=== PATIENT | female | born 1975 | race Caucasian/White ===

== ENCOUNTER 2016-12-10 15:52 | Emergency (ER) | payer SELFPAY ==
--- NOTE | 2016-12-10 16:17 | ER Document Report ---
ED Medical Screen (RME) - General Chief Complaint: Flank Pain Stated Complaint: FLANK PAIN Time Seen by Provider: 12/10/16 16:10 Notes: 41-year-old female who presents today with intermittent right flank pain starting Friday. History of kidney stone 1. Radiation to the right lower quadrant. Some nausea without vomiting or fevers. She does state some dysuria. She was placed on Keflex after they noticed some hematuria at her primary care physician's office. On exam the patient has some mild right flank pain. No abdominal tenderness. TRAVEL OUTSIDE OF THE [place] IN LAST 30 DAYS: No - Related Data Allergies/Adverse Reactions: amoxicillin Allergy (Verified 12/10/16 16:09) Penicillins Allergy (Verified 12/10/16 16:09) Sulfa (Sulfonamide Antibiotics) Allergy (Verified 12/10/16 16:09) Past Medical History Renal/ Medical History: Denies: Hx Peritoneal Dialysis - Immunizations Immunizations up to date: Yes Hx Diphtheria, Pertussis, Tetanus Vaccination: No Physical Exam - Vital signs Vitals: Temp Pulse Resp BP Pulse Ox 98.1 F 67 16 135/82 H 95 12/10/16 16:05 12/10/16 16:05 12/10/16 16:05 12/10/16 16:05 12/10/16 16:05 Course - Vital Signs Vital signs: Temp Pulse Resp BP Pulse Ox 98.1 F 67 16 135/82 H 95 12/10/16 16:05 12/10/16 16:05 12/10/16 16:05 12/10/16 16:05 12/10/16 16:05
[2016-12-10] MEDS ORDERED: KETOROLAC TROMETHAMINE INJ/PF 30 MG/1 ML SDV IV ONE (16:18)
[2016-12-10 16:45] LABS: ABSOLUTE EOSINOPHILS # (AUTO) 0.3 10^3/uL (0.0-0.6); ABSOLUTE LYMPHOCYTES (AUTO) 2.7 10^3/uL (0.5-4.7); ABSOLUTE MONOCYTES (AUTO) 0.6 10^3/uL (0.1-1.4); ABSOLUTE NEUT (AUTO) 4.9 10^3/uL (1.7-8.2); BASOPHILS % (AUTO) 0.6 % (0-2); EOSINOPHILS % (AUTO) 3.2 % (0-6); HEMATOCRIT 41.1 % (36.0-47.0); HEMOGLOBIN 13.7 g/dL (12.0-15.5); LYMPHOCYTES % (AUTO) 31.6 % (13-45); MEAN CORPUSCULAR HEMOGLOBIN 29.9 pg (27.0-33.4); MEAN CORPUSCULAR HGB CONC 33.4 g/dL (32.0-36.0); MEAN CORPUSCULAR VOLUME 90 fl (80-97); MONOCYTES % (AUTO) 7.5 % (3-13); RED BLOOD COUNT 4.58 10^6/uL (3.72-5.28); RED CELL DISTRIBUTION WIDTH 13.1 % (11.5-14.0); SEGMENTED NEUTROPHILS % (AUTO) 57.1 % (42-78); WHITE BLOOD COUNT 8.6 10^3/uL (4.0-10.5)
[2016-12-10 16:53] LABS: ANION GAP 11 (5-19); BLOOD UREA NITROGEN 11 mg/dL (7-20); CALCIUM 9.9 mg/dL (8.4-10.2); CARBON DIOXIDE 25 mmol/L (22-30); CHLORIDE 104 mmol/L (98-107); CREATININE RESULT 0.67 mg/dL (0.52-1.25); GLUCOSE 93 mg/dL (75-110); POTASSIUM 4.5 mmol/L (3.6-5.0); SODIUM 140.4 mmol/L (137-145)
[2016-12-10 16:59] LABS: APPEARANCE,URINE CLOUDY; BILIRUBIN,URINE NEGATIVE (NEGATIVE); GLUCOSE, URINE NEGATIVE (NEGATIVE); KETONES,URINE TRACE mg/dL (NEGATIVE); LEUKOCYTE ESTERASE,URINE NEGATIVE (NEGATIVE); NITRITE,URINE NEGATIVE (NEGATIVE); PROTEIN,URINE 30 mg/dL (NEGATIVE); URINE SPECIFIC GRAVITY 1.028; UROBILINOGEN,URINE NEGATIVE mg/dL (<2.0)
--- NOTE | 2016-12-10 18:13 | ER Document Report ---
ED GI/ - General Chief Complaint: Flank Pain Stated Complaint: FLANK PAIN Time Seen by Provider: 12/10/16 16:10 Information source: Patient Notes: 41-year-old female who presents today with intermittent right flank pain starting Friday. History of kidney stone 1. Radiation to the right lower quadrant. She denies any real aggravating relieving factors. Some nausea without vomiting or fevers. She does state some dysuria. She was placed on Keflex after they noticed some hematuria at her primary care physician's office. TRAVEL OUTSIDE OF THE [place] IN LAST 30 DAYS: No - HPI Patient complains to provider of: Flank pain Onset: Other Timing/Duration: Gradual Quality of pain: Other - See above Severity at maximum: Mild Severity in ED: Mild Pain Level: Denies Location: Other - See above Vaginal bleeding (Compared to normal period): None Sexual history: Inactive Associated symptoms: Other - See above Exacerbated by: Denies Relieved by: Denies Similar symptoms previously: No Recently seen / treated by doctor: Yes - Related Data Allergies/Adverse Reactions: amoxicillin Allergy (Verified 12/10/16 16:09) Penicillins Allergy (Verified 12/10/16 16:09) Sulfa (Sulfonamide Antibiotics) Allergy (Verified 12/10/16 16:09) Past Medical History - General Information source: Patient - Social History Smoking Status: Unknown if Ever Smoked Cigarette use (# per day): No Chew tobacco use (# tins/day): No Smoking Education Provided: No Family History: Reviewed & Not Pertinent Renal/ Medical History: Denies: Hx Peritoneal Dialysis - Immunizations Immunizations up to date: Yes Hx Diphtheria, Pertussis, Tetanus Vaccination: No Review of Systems - Review of Systems Constitutional: denies: Fever Cardiovascular: denies: Chest pain, Palpitations Respiratory: denies: Short of breath Gastrointestinal: denies: Diarrhea, Vomiting Genitourinary: Dysuria Neurological/Psychological: Other - no slurred speech -: Yes All other systems reviewed and negative Physical Exam - Vital signs Vitals: Temp Pulse Resp BP Pulse Ox 98.1 F 67 16 135/82 H 95 12/10/16 16:05 12/10/16 16:05 12/10/16 16:05 12/10/16 16:05 12/10/16 16:05 Notes: Reviewed vital signs and nursing note as charted by RN. CONSTITUTIONAL: Alert and oriented and responds appropriately to questions. Well -appearing; well-nourished HEAD: Normocephalic; atraumatic EYES: PERRL CARD: Regular rate and rhythm; no murmurs, no clicks, no rubs, no gallops; symmetric distal pulses RESP: Normal chest excursion without splinting or tachypnea; breath sounds clear and equal bilaterally; no wheezes, no rhonchi, no rales ABD/GI: Normal bowel sounds; non-distended; soft, mildly tender the right lower quadrant; no rebound or guarding. BACK: The back appears normal and is non-tender to palpation, right CVA tenderness EXT: Normal ROM in all joints; non-tender to palpation; no cyanosis, no effusions, no edema SKIN: Normal color for age and race; warm; dry; good turgor; capillary refill < 2 seconds; no acute lesions noted NEURO: Moves all extremities equally; Motor and sensory function intact PSYCH: The patient's mood and manner are appropriate. Grooming and personal hygiene are appropriate. Course - Re-evaluation Re-evalutation: Given the above history and physical examination I'll elect order a CT scan renal colic protocol to evaluate for possible kidney stone as well as basic labs and kidney function analysis. 12/10/16 18:12 Labs, urinalysis, CT scan as recorded. Given the lack of any kidney stone, this could be an improving urinary tract infection. Given the right lower quadrant pain we have attempted to perform a pelvic exam. Patient has refused. - Vital Signs Vital signs: Temp Pulse Resp BP Pulse Ox 98.1 F 67 16 135/82 H 95 12/10/16 16:05 12/10/16 16:05 12/10/16 16:05 12/10/16 16:05 12/10/16 16:05 - Laboratory Result Diagrams: 12/10/16 16:20 12/10/16 16:20 Laboratory results interpreted by me: 12/10/16 16:20 Urine Protein 30 H Urine Ketones TRACE H Discharge - Discharge Clinical Impression: Right flank pain Condition: Fair Disposition: AGAINST MEDICAL ADVICE Additional Instructions: Come back at any time for further evaluation and treatment. Please follow-up with your primary care physician regarding flank pain and abdominal pain.
[2016-12-10 18:17] VITALS: BP 127/71
== END 2016-12-10 19:04 | disposition left against medical advice (07) ==
LOC: ER 15:52
DX: R10.31 Right lower quadrant pain (principal); R10.9 Unspecified abdominal pain; R11.0 Nausea; R30.0 Dysuria
CPT/HCPCS: 99284; 96374; 36415; 85025; 81025; 80048; 81001; 76380; J1885

== ENCOUNTER → 2017-08-08 | Outpatient (CLI) | payer OTHER ==
[2017-08-08 19:11] LABS: FREE T3 3.48 pg/mL (2.77-5.27); FREE T4 (FREE THYROXINE) 0.89 ng/dL (0.78-2.19)
[2017-08-08 19:25] LABS: THYROID STIMULATING HORMONE 2.41 uIU/mL (0.47-4.68)
== END ==
LOC: OD 17:02
PROVIDERS: ATTEND Family Medicine
DX: M25.50 Pain in unspecified joint (principal)
CPT/HCPCS: 36415; 84439; 84443; 84481; 85652; 86038; 86140; 86225; 86430; 86812

== ENCOUNTER 2018-04-27 05:32 | Day surgery (SDC) | payer OTHER ==
[2018-03-10 11:33] LABS: HEMATOCRIT 41.4 % (36.0-47.0); HEMOGLOBIN 14.2 g/dL (12.0-15.5); MEAN CORPUSCULAR HEMOGLOBIN 29.9 pg (27.0-33.4); MEAN CORPUSCULAR HGB CONC 34.3 g/dL (32.0-36.0); MEAN CORPUSCULAR VOLUME 87 fl (80-97); PLATELET COUNT 392 10^3/uL (150-450); RED BLOOD COUNT 4.75 10^6/uL (3.72-5.28); RED CELL DISTRIBUTION WIDTH 12.9 % (11.5-14.0)
[2018-03-10 11:39] LABS: APPEARANCE,URINE CLOUDY; BILIRUBIN,URINE NEGATIVE (NEGATIVE); GLUCOSE, URINE NEGATIVE (NEGATIVE); KETONES,URINE NEGATIVE (NEGATIVE); LEUKOCYTE ESTERASE,URINE TRACE (NEGATIVE); NITRITE,URINE NEGATIVE (NEGATIVE); PROTEIN,URINE NEGATIVE (NEGATIVE); URINE SPECIFIC GRAVITY 1.028; UROBILINOGEN,URINE NEGATIVE mg/dL (<2.0)
[2018-03-10 11:41] LABS: COLOR,URINE YELLOW
[2018-04-21 11:10] LABS: APPEARANCE,URINE CLOUDY; BILIRUBIN,URINE NEGATIVE (NEGATIVE); GLUCOSE, URINE NEGATIVE (NEGATIVE); KETONES,URINE NEGATIVE (NEGATIVE); LEUKOCYTE ESTERASE,URINE NEGATIVE (NEGATIVE); NITRITE,URINE NEGATIVE (NEGATIVE); PROTEIN,URINE NEGATIVE (NEGATIVE); URINE SPECIFIC GRAVITY 1.019; UROBILINOGEN,URINE NEGATIVE mg/dL (<2.0)
[2018-04-21 11:11] LABS: COLOR,URINE DARK YELLOW
[2018-04-21 11:13] LABS: HEMOGLOBIN 13.6 g/dL (12.0-15.5); MEAN CORPUSCULAR HEMOGLOBIN 29.4 pg (27.0-33.4); MEAN CORPUSCULAR VOLUME 87 fl (80-97); PLATELET COUNT 408 10^3/uL (150-450); RED BLOOD COUNT 4.62 10^6/uL (3.72-5.28); RED CELL DISTRIBUTION WIDTH 13.3 % (11.5-14.0); WHITE BLOOD COUNT 9.6 10^3/uL (4.0-10.5)
[~2018-04-27 05:32] MED LIST: LACTATED RINGERS 1000 ML IV PRN
[2018-04-27] MEDS ORDERED: MIDAZOLAM 2 MG/2 ML INJ ONE (06:19)
[2018-04-27] MEDS ORDERED: FENTANYL CITRATE INJ/PF 100 MCG/2 ML AMPUL ONE (06:19)
[2018-04-27] MEDS ORDERED: LIDOCAINE 2% INJ-PF (20 MG/ML) 10 ML AMPUL ONE (06:19)
[2018-04-27] MEDS ORDERED: ONDANSETRON HCL INJ/PF 4 MG/2 ML SDV ONE (06:20)
[2018-04-27] MEDS ORDERED: PROPOFOL INJ 200 MG/20 ML VIAL IV ONE (06:20)
[2018-04-27] MEDS ORDERED: ACETAMINOPHEN 1,000 MG/100 ML RTUPB IV ONE (06:20)
[2018-04-27] MEDS ORDERED: DEXAMETHASONE SOD PHOSPHATE INJ 4 MG/1 ML VIAL ONE (06:20)
[2018-04-27] MEDS ORDERED: MEPERIDINE HCL/PF INJ 25 MG/1 ML DISP.SYRIN IV PRN (07:15)
[2018-04-27] MEDS ORDERED: MORPHINE SULFATE 10 MG/ML INJ IV PRN (07:15)
[2018-04-27] MEDS ORDERED: PROMETHAZINE HCL INJ 25 MG/1 ML VIAL IV PRN ×2 (07:15)
[2018-04-27] MEDS ORDERED: FENTANYL CITRATE INJ/PF 100 MCG/2 ML AMPUL IV PRN ×3 (07:15)
[2018-04-27] MEDS ORDERED: DIPHENHYDRAMINE HCL 50 MG/ML VIAL IV PRN (07:15)
[2018-04-27] MEDS ORDERED: ONDANSETRON HCL INJ/PF 4 MG/2 ML SDV IV PRN (07:15)
[2018-04-27] MEDS ORDERED: KETOROLAC TROMETHAMINE INJ/PF 30 MG/1 ML SDV ONE (08:50)
[2018-04-27] MEDS: FENTANYL CITRATE INJ/PF 100 MCG/2 ML AMPUL ONE ×2 (08:53→09:10)
[2018-04-27] MEDS ORDERED: PROMETHAZINE HCL INJ 25 MG/1 ML VIAL ONE (09:05)
--- NOTE | 2018-04-27 09:12 | Operative Report ---
Operative Report DATE OF SURGERY: 04/27/18 PREOPERATIVE DIAGNOSIS: Patient desires tubal ligation and endometrial ablation for heavy menses and sterilization POSTOPERATIVE DIAGNOSIS: Same OPERATION: Laparoscopy with bilateral fulgaration of fallopian tubes. Hysteroscopy and D&C with novasure endometrial ablation. SURGEON: RACHID OSHEA ANESTHESIA: GA TISSUE REMOVED OR ALTERED: Uterine contents COMPLICATIONS: none ESTIMATED BLOOD LOSS: none INTRAOPERATIVE FINDINGS: Normal uterus ovaries and fallopian tubes. Uterine sound to 9 cm with uterine cavity of 5 cm and width of 4.5 cm. PROCEDURE: The patient was taken to the OR and placed in a supine position. General anesthesia was induced and she was placed in a dorsal lithotomy position. Her abdomen, perineum and vagina were prepared and draped in a sterile fashion. A sponge stick was placed in the vagina for manipulation of the uterus. An incision was made at the umbilicus. The natural umbilical defect was dialated with a gissell clamp and a blunt port was inserted. Laparoscopy confirmed appropriate placement. Each fallopian tube was identified and cauterized at its mid-isthmic portion with five successive bites moving towards the uterine cornu. At the end of the case the gas was allowed to escape. The fascia was closed with a 2-0 vicryl suture and the skin was closed with 4-0 vicryl suture. Next attention was turned to the vaginal portion of the case. The speculum was placed and the cervix was grasped with a tenaculum. The uterus sounded to 9 cm before and after the case. Hysteroscopy done and showed a normal cavity at 5 cm length. A fractional D&C was done. The Novasure device was inserted, tested and fired. The width was 4.5 cm. The ablation time was 1:30. All instruments were removed and repeat hysteroscopy showed a well ablated cavity. She was taken out of anesthesia and taken to recovery in stable condition.
[2018-04-27] MEDS ORDERED: OXYCODONE-ACETAMINOPHEN 5-325 MG TABLET ONE (09:52)
[2018-04-27 10:53] VITALS: BP 121/74
[2018-04-27] MEDS ORDERED: VECURONIUM BROMIDE INJ 10 MG VIAL IV ONE (14:19)
[2018-04-27] MEDS ORDERED: NEOSTIGMINE METHYLSULFATE 10 MG/10 ML VIAL ONE (14:19)
[2018-04-27] MEDS ORDERED: GLYCOPYRROLATE 1 MG/5 ML SYRINGE ONE (14:19)
[2018-04-27] MEDS ORDERED: SUCCINYLCHOLINE CHLORIDE INJ 200 MG/10 ML VIAL ONE (14:19)
== END 2018-04-27 10:55 | disposition home or self-care (01) ==
LOC: OROUT 05:32
PROVIDERS: ATTEND Obstetrics & Gynecology
DX: Z30.2 Encounter for sterilization (principal); N93.8 Other specified abnormal uterine and vaginal bleeding; N84.0 Polyp of corpus uteri
CPT/HCPCS: 36415 ×2; 85027 ×2; 81005 ×2; 81025; 88305 ×2; 58670; 58563; J2250; J1100; J3010; J3490 ×3; J1885; J2550; J0330; J2405; J2704; J0131; 851

== ENCOUNTER 2018-05-13 18:03 | Emergency (ER) | payer OTHER ==
--- NOTE | 2018-05-13 19:40 | ER Document Report ---
ED General - General Chief Complaint: Post Problem Stated Complaint: POST SURGICAL PAIN Time Seen by Provider: 05/13/18 19:11 Mode of Arrival: Ambulatory Information source: Patient Notes: 43-year-old female with history of recurrent breast infections presents with complaint of right lower quadrant abdominal pain that started earlier today. Patient describes the pain as throbbing, stabbing with radiation to her back. Patient underwent an ablation and tubal ligation on April [address] Cheung. She states over the last few days she has noticed fluid coming from her vagina. She describes it as foul-smelling, yellow in color. Patient reports a fever at home of 101 last night. She has not had any associated nausea, vomiting, chest pain, shortness of breath. As far as the history of recurrent breast infections patient states that she is scheduled to be seen by a plastic surgeon. She states she was told because of the frequent recurrence that she may need a bilateral mastectomy. TRAVEL OUTSIDE OF THE [place] IN LAST 30 DAYS: No - HPI Onset: This morning Onset/Duration: Gradual, Persistent, Worse Quality of pain: Burning, Stabbing, Throbbing Severity: Moderate Associated symptoms: Body/muscle aches, Nonproductive cough, Fever. denies: Hurts to breath, Nausea, Vomiting, Shortness of breath Exacerbated by: Denies Relieved by: Denies Similar symptoms previously: No Recently seen / treated by doctor: Yes - Related Data Allergies/Adverse Reactions: Penicillins Allergy (Intermediate, Verified 05/13/18 18:04) Oral swelling, Hives amoxicillin Allergy (Verified 05/13/18 18:04) Oral swelling, Hives Sulfa (Sulfonamide Antibiotics) Allergy (Verified 05/13/18 18:04) Oral swelling, Hives morphine Adverse Reaction (Mild, Verified 05/13/18 18:04) VOMITING Past Medical History - General Information source: Patient, [facility] Records - Social History Smoking Status: Never Smoker Frequency of alcohol use: None Drug Abuse: None Lives with: Alone Family History: Reviewed & Not Pertinent Patient has suicidal ideation: No Patient has homicidal ideation: No - Past Medical History Cardiac Medical History: Reports: Hx Hypertension - hx of, none at this time , no meds Denies: Hx Coronary Artery Disease, Hx Heart Attack Pulmonary Medical History: Denies: Hx Asthma, Hx Bronchitis, Hx COPD, Hx Pneumonia Neurological Medical History: Denies: Hx Cerebrovascular Accident, Hx Seizures Renal/ Medical History: Denies: Hx Peritoneal Dialysis Musculoskeletal Medical History: Reports Hx Arthritis - Back Past Surgical History: Reports: Hx Gynecologic Surgery - tubal ligation and ablation - Immunizations Immunizations up to date: Yes Hx Diphtheria, Pertussis, Tetanus Vaccination: No Review of Systems - Review of Systems Constitutional: Fever, Weakness EENT: denies: Blurred vision, Difficulty swallowing Cardiovascular: denies: Chest pain, Heart racing, Dizziness, Lightheaded Respiratory: Cough. denies: Short of breath Gastrointestinal: Abdominal pain Genitourinary: Dysuria, Flank pain Female Genitourinary: Vaginal discharge Musculoskeletal: Back pain Skin: denies: Rash Hematologic/Lymphatic: No symptoms reported Neurological/Psychological: denies: Headaches -: Yes All other systems reviewed and negative Physical Exam - Vital signs Vitals: Temp Pulse Resp BP Pulse Ox 98.3 F 86 18 149/87 H 97 05/13/18 18:18 10 18:18 05/13/18 18:18 05/13/18 18:18 05/13/18 18:18 Interpretation: Hypertensive - Notes Notes: PHYSICAL EXAMINATION: GENERAL: Well-appearing, well-nourished and in no acute distress. HEAD: Atraumatic, normocephalic. EYES: Pupils equal round and reactive to light, extraocular movements intact, conjunctiva are normal. ENT: Nares patent, oropharynx clear without exudates. Moist mucous membranes. NECK: Normal range of motion, supple without lymphadenopathy LUNGS: Breath sounds clear to auscultation bilaterally and equal. No wheezes rales or rhonchi. HEART: Regular rate and rhythm without murmurs ABDOMEN: Right lower quadrant abdominal pain with palpation, no guarding, no rebound. No masses appreciated. Right CVA tenderness Female : Pelvic exam; External genitalia unremarkable. Speculum exam with discharge. Vaginal wall unremarkable. Os closed. No cervical motion tenderness. right adnexal tenderness. Swabs obtained for gonorrhea, chlamydia and wet prep. Musculoskeletal: Normal range of motion, no pitting or edema. No cyanosis. NEUROLOGICAL: Cranial nerves grossly intact. Normal speech, normal gait. Normal sensory, motor exams PSYCH: Normal mood, normal affect. SKIN: Warm, Dry, normal turgor, no rashes or lesions noted. No induration or fluctuance of the breasts Course - Re-evaluation Re-evalutation: Laboratory 05/13/18 05/13/18 05/13/18 19:13 19:13 19:13 WBC 14.7 H RBC 4.73 Hgb 13.9 Hct 40.7 MCV 86 MCH 29.4 MCHC 34.3 RDW 13.4 Plt Count 455 H Seg Neutrophils % 68.9 Lymphocytes % 19.6 Monocytes % 7.4 Eosinophils % 3.4 Basophils % 0.7 Absolute Neutrophils 10.1 H Absolute Lymphocytes 2.9 Absolute Monocytes 1.1 Absolute Eosinophils 0.5 Absolute Basophils 0.1 Sodium 138.8 Potassium 4.5 Chloride 104 Carbon Dioxide 25 Anion Gap 10 BUN 11 Creatinine 0.71 Est GFR ( Amer) > 60 Est GFR (Non-Af Amer) > 60 Glucose 88 Calcium 9.7 Total Bilirubin 0.3 Direct Bilirubin 0.2 Neonat Total Bilirubin Not Reportable Neonat Direct Bilirubin Not Reportable Neonat Indirect Bili Not Reportable AST 24 ALT 25 Alkaline Phosphatase 47 Total Protein 7.6 Albumin 4.3 Lipase 182.4 Urine Color YELLOW Urine Appearance TURBID Urine pH 5.0 Ur Specific [place] 1.038 Urine Protein >=500 H Urine Glucose (UA) NEGATIVE Urine Ketones NEGATIVE Urine Blood LARGE H Urine Nitrite NEGATIVE Urine Bilirubin NEGATIVE Urine Urobilinogen NEGATIVE Ur Leukocyte Esterase LARGE H Urine WBC (Auto) >182 Urine RBC (Auto) 57 Urine Bacteria (Auto) 3+ Urine WBC Clumps MANY Squamous Epi Cells Auto 7 Urine Mucus (Auto) FEW Urine Ascorbic Acid NEGATIVE Urine HCG, Qual Epi Cells (Wet Prep) Bacteria (Wet Prep) Trichomonas (Wet Prep) Vaginal WBC Vaginal RBC Vaginal Yeast Chlamydia DNA (PCR) N.gonorrhoeae DNA (PCR) 05/13/18 05/13/18 05/13/18 19:13 20:52 20:52 WBC RBC Hgb Hct MCV MCH MCHC RDW Plt Count Seg Neutrophils % Lymphocytes % Monocytes % Eosinophils % Basophils % Absolute Neutrophils Absolute Lymphocytes Absolute Monocytes Absolute Eosinophils Absolute Basophils Sodium Potassium Chloride Carbon Dioxide Anion Gap BUN Creatinine Est GFR ( Amer) Est GFR (Non-Af Amer) Glucose Calcium Total Bilirubin Direct Bilirubin Neonat Total Bilirubin Neonat Direct Bilirubin Neonat Indirect Bili AST ALT Alkaline Phosphatase Total Protein Albumin Lipase Urine Color Urine Appearance Urine pH Ur Specific [place] Urine Protein Urine Glucose (UA) Urine Ketones Urine Blood Urine Nitrite Urine Bilirubin Urine Urobilinogen Ur Leukocyte Esterase Urine WBC (Auto) Urine RBC (Auto) Urine Bacteria (Auto) Urine WBC Clumps Squamous Epi Cells Auto Urine Mucus (Auto) Urine Ascorbic Acid Urine HCG, Qual NEGATIVE Epi Cells (Wet Prep) 3+ EPITHELIALS SEEN Bacteria (Wet Prep) 4+ BACTERIA SEEN Trichomonas (Wet Prep) NO TRICHOMONAS SEEN Vaginal WBC 3+ WBCS SEEN Vaginal RBC RARE RBCS SEEN Vaginal Yeast YEAST SEEN Chlamydia DNA (PCR) NOT DETECTED N.gonorrhoeae DNA (PCR) NOT DETECTED Abdomen/Pelvis CT 05/13/18 19:32 IMPRESSION: Fluid and gas within the endometrium. Possibility of endometritis is not excluded No free fluid in the pelvis Fibroid in the uterine fundus 43-year-old female presents with abdominal pain, vaginal discharge 2 weeks after an ablation and tubal ligation. Vital signs reviewed and within normal limits. Previous medical records and nursing notes also reviewed. Exam is significant for suprapubic and right lower quadrant abdominal pain. CBC is significant for a leukocytosis of 14. CMP is without electrolyte abnormalities. Urinalysis consistent with urinary tract infection. Wet prep positive. Gonorrhea and chlamydia negative. Prior to CAT scan results patient did receive 1 g of ceftriaxone for her urinary tract infection. CT of the abdomen and pelvis were obtained and significant for fluid and gas within the endometrium. 05/13/18 22:24 I did speak to Dr. Irwin Cheung who did perform the surgery. I reviewed the patient's lab findings and CT findings with him. He is recommending Cipro and Flagyl for home-going medications. Upon review of the literature I will use doxycycline and Flagyl. Patient also received Diflucan for found yeast on vaginal swabs. Patient has an appointment tomorrow with her [facility] CONTROL COORDINATOR. I did discuss admission with the patient who is currently declining. She states that she has a disabled son at home and would like to try outpatient antibiotics. Patient was evaluated and treated as appropriate for the patient's presenting symptoms and complaint, with consideration of any critical or life threatening conditions that may be associated with their obtained history and exam as noted above. All results were discussed with patient and her surgeon. Patient provided the opportunity to ask questions, and express concerns. Patient was educated on treatments based on their presumed diagnosis as noted above. At this time we will discharge the patient with return precautions and follow-up recommendations. Verbal discharge instructions given a the bedside. Medication warnings reviewed. Patient is in agreement with this plan and has verbalized understanding of return precautions. After careful consideration I feel that that patient can be safely discharged from the emergency department, they were advised to followup with a primary care physician in 2-3 days. Dictation on this chart was performed using voice recognition software and may result in unintended grammatical, spelling, syntax or errors. 05/14/18 02:23 05/14/18 02:24 05/14/18 02:26 - Vital Signs Vital signs: Temp Pulse Resp BP Pulse Ox 98.0 F 81 18 140/82 H 100 05/13/18 22:43 05/13/18 22:43 05/13/18 22:43 05/13/18 22:43 05/13/18 22:43 - Laboratory Result Diagrams: 05/13/18 19:13 05/13/18 19:13 Laboratory results interpreted by me: 05/13/18 05/13/18 19:13 19:13 WBC 14.7 H Plt Count 455 H Absolute Neutrophils 10.1 H Urine Protein >=500 H Urine Blood LARGE H Ur Leukocyte Esterase LARGE H - Diagnostic Test Radiology reviewed: Image reviewed, Reports reviewed Discharge - Discharge Clinical Impression: Endometritis, Elevated blood pressure reading, Bacterial vaginosis, Vaginal candidiasis UTI (urinary tract infection) Qualifiers: Urinary tract infection type: site unspecified Hematuria presence: with hematuria Qualified Code(s): N39.0 - Urinary tract infection, site not specified Abdominal pain Qualifiers: Abdominal location: right lower quadrant Qualified Code(s): R10.31 - Right lower quadrant pain Condition: Good Disposition: HOME, SELF-CARE Instructions: Abdominal Pain ([facility]), Antinausea Medication ([facility]), Endometritis ( [facility]), Urinary Tract Infection ([facility]), Vaginosis, Bacterial ([facility]) Additional Instructions: You are being treated for bacterial vaginosis, an overgrowth of normal bacteria in the vagina. You are being sent home on an antibiotic called metronidazole. Take exactly as directed. Never drink alcohol while taking this antibiotic. Please return if you develop abdominal pain, fever greater than 101F, some vomiting, or any other symptoms that are concerning to you. Your urine shows findings consistent with a urinary tract infection. Please take all the antibiotics as directed even if your symptoms have improved. Please follow-up with your primary care physician as needed. Return to emergency room if you develop fever >101F, persistent vomiting, become lethargic , have severe pain in your sides, or any other symptoms that are concerning to you. Please keep your already scheduled appointment with EROS[facility] CONTROL COORDINATOR tomorrow. Follow up with your [id number] hours for further care or return to the ED IMMEDIATELY if symptoms worsen or you have any concerns. If you cannot afford to follow up with your primary care physician a list of low cost clinics have been provided at the end of your discharge papers as well. Most prescribed medications have multiple side effects. The safest thing to do is when filling your prescription speak to your pharmacist regarding possible interactions with your normal home medications and over the counter medications such as Ibuprofen, Tylenol, Benadryl. If you experience any symptoms that cause you discomfort or concern you should discontinue the medication immediately and return to the emergency room or call your primary care physician. Prescriptions: Doxycycline Hyclate 100 mg PO BID #14 capsule Hydrocodone/Acetaminophen [[place] 5-325 mg Tabs (6 Tab/ER Disp)] 6 tab PO Q6H #1 dspk Metronidazole [Flagyl 500 mg Tablet] 500 mg PO BID #14 tablet Ondansetron [Zofran Odt 4 mg Tablet] 1 - 2 tab PO Q4H PRN #15 tab.rapdis PRN Reason: For Nausea/Vomiting Forms: Elevated Blood Pressure Referrals: ARIS AGUILAR PA-C [Primary Care Provider] - Follow up as needed
[2018-05-13 19:47] LABS: ABSOLUTE BASOPHILS # (AUTO) 0.1 10^3/uL (0.0-0.2); ABSOLUTE EOSINOPHILS # (AUTO) 0.5 10^3/uL (0.0-0.6); ABSOLUTE LYMPHOCYTES (AUTO) 2.9 10^3/uL (0.5-4.7); ABSOLUTE MONOCYTES (AUTO) 1.1 10^3/uL (0.1-1.4); ABSOLUTE NEUT (AUTO) 10.1 10^3/uL (1.7-8.2); BASOPHILS % (AUTO) 0.7 % (0-2); EOSINOPHILS % (AUTO) 3.4 % (0-6); HEMATOCRIT 40.7 % (36.0-47.0); HEMOGLOBIN 13.9 g/dL (12.0-15.5); LYMPHOCYTES % (AUTO) 19.6 % (13-45); MEAN CORPUSCULAR HEMOGLOBIN 29.4 pg (27.0-33.4); MEAN CORPUSCULAR HGB CONC 34.3 g/dL (32.0-36.0); MEAN CORPUSCULAR VOLUME 86 fl (80-97); MONOCYTES % (AUTO) 7.4 % (3-13); PLATELET COUNT 455 10^3/uL (150-450); RED BLOOD COUNT 4.73 10^6/uL (3.72-5.28); RED CELL DISTRIBUTION WIDTH 13.4 % (11.5-14.0); SEGMENTED NEUTROPHILS % (AUTO) 68.9 % (42-78); TOTAL CELLS COUNTED % (AUTO) 100 %; WHITE BLOOD COUNT 14.7 10^3/uL (4.0-10.5)
[2018-05-13 19:52] LABS: APPEARANCE,URINE TURBID; BILIRUBIN,URINE NEGATIVE (NEGATIVE); COLOR,URINE YELLOW; GLUCOSE, URINE NEGATIVE (NEGATIVE); KETONES,URINE NEGATIVE (NEGATIVE); LEUKOCYTE ESTERASE,URINE LARGE (NEGATIVE); NITRITE,URINE NEGATIVE (NEGATIVE); PROTEIN,URINE >=500 mg/dL (NEGATIVE); URINE SPECIFIC GRAVITY 1.038; UROBILINOGEN,URINE NEGATIVE mg/dL (<2.0)
[2018-05-13 19:55] LABS: ALANINE AMINOTRANSFERASE 25 U/L (9-52); ALBUMIN 4.3 g/dL (3.5-5.0); ALKALINE PHOSPHATASE 47 U/L (38-126); ANION GAP 10 (5-19); ASPARTATE AMINO TRANSFERASE 24 U/L (14-36); BILIRUBIN,DIRECT 0.2 mg/dL (0.0-0.4); BILIRUBIN,TOTAL 0.3 mg/dL (0.2-1.3); BLOOD UREA NITROGEN 11 mg/dL (7-20); CALCIUM 9.7 mg/dL (8.4-10.2); CARBON DIOXIDE 25 mmol/L (22-30); CHLORIDE 104 mmol/L (98-107); GLUCOSE 88 mg/dL (75-110); LIPASE 182.4 U/L (23-300); POTASSIUM 4.5 mmol/L (3.6-5.0); SODIUM 138.8 mmol/L (137-145); TOTAL PROTEIN 7.6 g/dL (6.3-8.2)
[2018-05-13] MEDS ORDERED: CEFTRIAXONE 1 GM/D5W RTU 1 GM/50 ML RTUPB IV ONE (20:43)
[2018-05-13] MEDS ORDERED: KETOROLAC TROMETHAMINE INJ/PF 30 MG/1 ML SDV IV ONE (20:53)
[2018-05-13] MEDS: NORMAL SALINE 1000 ML 1,000 ML IV ONE ×2 (21:07→22:31)
[2018-05-13 21:25] LABS: BACTERIA (WET MOUNT) 4+ BACTERIA SEEN; RBCS (WET MOUNT) RARE RBCS SEEN; T.VAGINALIS (WET MOUNT) NO TRICHOMONAS SEEN; WBCS (WET MOUNT) 3+ WBCS SEEN; YEAST (WET MOUNT) YEAST SEEN
[2018-05-13 21:26] LABS: EPITHELIALS (WET MOUNT) 3+ EPITHELIALS SEEN
--- NOTE | 2018-05-13 22:07 | RADIOLOGY REPORT (SQ) ---
EXAM DESCRIPTION: CT ABDOMEN PELVIS WITH IV CONTRAST COMPLETED DATE/TME: 05/13/2018 19:32 CLINICAL HISTORY: 43 years Female rlq pain COMPARISON: None. TECHNIQUE: Contiguous axial images obtained through the abdomen and pelvis following IV contrast. Reformatted images obtained. This exam was performed according to our department optimization program which includes automated exposure control, adjustment of the mA and/or kv according to patient size and/or use of iterative reconstruction technique. FINDINGS: The liver appears unremarkable. The spleen and pancreas appear unremarkable. No adrenal masses. The kidneys appear unremarkable. No hydronephrosis. The gallbladder is absent. No aneurysmal dilatation of the aorta. No bowel obstruction. The appendix is unremarkable. Fibroid uterus with a 3.6 cm fibroid in the right aspect of the fundus. There is fluid and gas in the endometrium. Recommend clinical correlation. Possibility of infection such as endometritis is not excluded. IMPRESSION: Fluid and gas within the endometrium. Possibility of endometritis is not excluded No free fluid in the pelvis Fibroid in the uterine fundus
[2018-05-13] MEDS ORDERED: CLINDAMYCIN HCL 150 MG CAPSULE PO ONE (22:18)
[2018-05-13] MEDS ORDERED: FLUCONAZOLE 100 MG TABLET PO ONE (22:20)
[2018-05-13] MEDS ORDERED: DOXYCYCLINE HYCLATE 100 MG TABLET PO ONE (22:20)
[2018-05-13 22:45] VITALS: BP 140/82
[2018-05-13 22:55] LABS: CHLAM PCR NOT DETECTED (NOT DETECT); GON PCR NOT DETECTED (NOT DETECT)
== END 2018-05-13 22:49 | disposition home or self-care (01) ==
LOC: ER 18:03
DX: O86.12 Endometritis following delivery (principal); B96.89 Other specified bacterial agents as the cause of diseases classified elsewhere; B37.3 Candidiasis of vulva and vagina; N39.0 Urinary tract infection, site not specified; R10.31 Right lower quadrant pain; I10 Essential (primary) hypertension; G89.18 Other acute postprocedural pain; M54.9 Dorsalgia, unspecified; R50.9 Fever, unspecified; M79.10 Myalgia, unspecified site; R05 Cough; R30.0 Dysuria
CPT/HCPCS: 99284; 96375; 96365; 36415; 87210; 83690; 85025; 81025; 80053; 81001; 87491; 87591; 74177; J1885; J0696; J7030

== ENCOUNTER 2019-08-29 10:55 | Emergency (ER) | payer OTHER ==
[2019-08-29] MEDS ORDERED: ACETAMINOPHEN 325 MG TABLET PO ONE (13:04)
[2019-08-29] MEDS ORDERED: TETRACAINE HCL 0.5% OPH SOLN 4 ML OD ONE (13:23)
--- NOTE | 2019-08-29 13:42 | ER Document Report ---
ED General - General Chief Complaint: Eye Pain Stated Complaint: VISION DIFFICULTY Time Seen by Provider: 08/29/19 13:20 Primary Care Provider: DANICA MALDONADO DO [ACTIVE STAFF] - Follow up as needed ARIS AGUILAR PA-C [Primary Care Provider] - Follow up as needed Mode of Arrival: Ambulatory Information source: Patient TRAVEL OUTSIDE OF THE [place] IN LAST 30 DAYS: No - HPI Onset: Other - 5 days ago Onset/Duration: Gradual Quality of pain: Burning Severity: Moderate Pain Level: 3 Associated symptoms: Nonproductive cough, Other - swelling of left upper eye lid interanlly externally Exacerbated by: Denies Relieved by: Denies Similar symptoms previously: No Recently seen / treated by doctor: No Notes: 44 year old female with no significant PMH here for 5 days of a cough, congestion, and left eye lid pain/swelling along with left eye soft tissue swelling. The patient saw her PCP last week and was prescribed Levaquin and Polymixin Eye Drops due to concern of pneumonia (she had a positive xray) and an eye infection. The patient says the pain and swelling in her left eye seem to be getting worse over the last few days. The patient thinks there is a sty in her left eye that is about to open up. The patient says her cough has improved some since being on Levaquin. The patient does not wear contacts. - Related Data Allergies/Adverse Reactions: Penicillins Allergy (Intermediate, Verified 08/29/19 11:41) Oral swelling, Hives amoxicillin Allergy (Verified 08/29/19 11:41) Oral swelling, Hives Sulfa (Sulfonamide Antibiotics) Allergy (Verified 08/29/19 11:41) Oral swelling, Hives morphine Adverse Reaction (Mild, Verified 08/29/19 11:41) VOMITING Past Medical History - General Information source: Patient - Social History Smoking Status: Current Every Day Smoker Chew tobacco use (# tins/day): No Frequency of alcohol use: None Drug Abuse: None Lives with: Alone Family History: Reviewed & Not Pertinent Patient has suicidal ideation: No Patient has homicidal ideation: No - Past Medical History Cardiac Medical History: Reports: Hx Hypertension - hx of, none at this time , no meds Denies: Hx Coronary Artery Disease, Hx Heart Attack Pulmonary Medical History: Denies: Hx Asthma, Hx Bronchitis, Hx COPD, Hx Pneumonia Neurological Medical History: Denies: Hx Cerebrovascular Accident, Hx Seizures Renal/ Medical History: Denies: Hx Peritoneal Dialysis Musculoskeletal Medical History: Reports Hx Arthritis - Back Past Surgical History: Reports: Hx Gynecologic Surgery - tubal ligation and ablation - Immunizations Immunizations up to date: Yes Hx Diphtheria, Pertussis, Tetanus Vaccination: No Review of Systems - Review of Systems Constitutional: No symptoms reported EENT: Eye pain, Tearing, Other - mild left sided facial swelling with redness Cardiovascular: No symptoms reported Respiratory: Cough Gastrointestinal: No symptoms reported Genitourinary: No symptoms reported Female Genitourinary: No symptoms reported Musculoskeletal: No symptoms reported Skin: Other - mild erythema and swelling of soft tissue around left eye Hematologic/Lymphatic: No symptoms reported Neurological/Psychological: No symptoms reported -: Yes All other systems reviewed and negative Physical Exam - Vital signs Vitals: Temp Pulse Resp BP Pulse Ox 98.1 F 84 18 155/87 H 97 08/29/19 11:12 08/29/19 11:12 08/29/19 11:12 08/29/19 11:12 08/29/19 11:12 - Notes Notes: GENERAL: Well-appearing, well-nourished and in no acute distress. HEAD: Atraumatic, normocephalic. EYES: Pupils equal round and reactive to light, extraocular movements intact, sclera anicteric. Sty in left upper eye lid which can be seen externally and internally. Mild erythema of left conjunctiva. Mild swelling, erythema and warmth of soft tissue around left eye which seems to start around the sty. ENT: Nares patent, oropharynx clear without exudates. Moist mucous membranes. NECK: Normal range of motion, supple without lymphadenopathy or JVD. LUNGS: Breath sounds clear to auscultation bilaterally and equal. No wheezes rales or rhonchi. HEART: Regular rate and rhythm without murmurs, rubs or gallops. ABDOMEN: Soft, nontender, normoactive bowel sounds. No guarding, no rebound. No masses appreciated. EXTREMITIES: Normal range of motion, no pitting or edema. No clubbing or cyanosis. NEUROLOGICAL: Cranial nerves II through XII grossly intact. Normal speech, normal gait. PSYCH: Normal mood, normal affect. SKIN: Warm, Dry, normal turgor, no rashes or lesions noted. - HEENT Visual acuity- Right eye: 20/70 Visual acuity- Left eye: 20/70 Visual acuity- Both eyes: 20/70 Corrective lenses worn: No Course - Re-evaluation Re-evalutation: 08/29/19 15:21 The patient has a sty in her left upper eye lid which is inflamed and possibly causing a surrounding cellulites. Will treat with Clindamycin and refer to Ophthalmology. Patient had some Fluorescein uptake at 12 oclock on exam of left eye so she was told to continue the antibiotic eye drops. Patient told to continue Levaquin if she is still have pneumonia symptoms. - Vital Signs Vital signs: Temp Pulse Resp BP Pulse Ox 98.0 F 80 18 160/95 H 96 08/29/19 14:16 08/29/19 14:16 08/29/19 14:16 08/29/19 14:16 08/29/19 14:16 Discharge - Discharge Clinical Impression: Sty, internal Qualifiers: Laterality: left Eyelid: upper Qualified Code(s): H00.024 - Hordeolum internum left upper eyelid Cellulitis Qualifiers: Site of cellulitis: face Qualified Code(s): L03.211 - Cellulitis of face Condition: Stable Disposition: HOME, SELF-CARE Instructions: Cellulitis ([facility]), Sty ([facility]) Additional Instructions: Start taking Clindamycin (oral antiotic) as prescribed. Continue your previously prescribed antibiotic eye drops. Use Tylenol and Motrin for pain and Tramadol for pain not well controlled. Follow up with an Eye Doctor as soon as possible. Prescriptions: Tramadol HCl [Ultram 50 mg Tablet] 50 mg PO Q6HP PRN #10 tab PRN Reason: Tramadol HCl [Ultram 50 mg Tablet] 50 mg PO Q8HP PRN #10 tab PRN Reason: Ondansetron [Zofran Odt 4 mg Tablet] 1 tab PO Q8HP PRN #15 tab.rapdis PRN Reason: For Nausea/Vomiting Clindamycin HCl [Cleocin 150 mg Capsule] 450 mg PO TID 7 Days #63 tab-cap Referrals: ARIS AGUILAR PA-C [Primary Care Provider] - Follow up as needed DANICA MALDONADO DO [ACTIVE STAFF] - Follow up as needed
[2019-08-29 14:17] VITALS: BP 160/95
== END 2019-08-29 14:16 | disposition home or self-care (01) ==
LOC: ER 10:55
DX: H00.024 Hordeolum internum left upper eyelid (principal); L03.211 Cellulitis of face; H57.12 Ocular pain, left eye; F17.200 Nicotine dependence, unspecified, uncomplicated; Z98.51 Tubal ligation status; Z88.0 Allergy status to penicillin; Z88.2 Allergy status to sulfonamides; Z88.6 Allergy status to analgesic agent
CPT/HCPCS: 99283; J3490

== ENCOUNTER 2019-11-27 08:31 | Emergency (ER) | payer SELFPAY ==
[2019-11-27] MEDS ORDERED: NORMAL SALINE 1000 ML 1,000 ML IV ONE (09:04)
--- NOTE | 2019-11-27 09:05 | ER Document Report ---
ED GI/ - General Chief Complaint: Abdominal Pain Stated Complaint: ABDOMINAL PAIN Time Seen by Provider: 11/27/19 08:36 Primary Care Provider: [facility] [Provider Group] - Follow up as needed ARIS AGUILAR PA-C [Primary Care Provider] - Follow up as needed Mode of Arrival: Ambulatory Information source: Patient Notes: Patient presents complaining of abdominal pain for the past 2 weeks that worsened today. Patient states that she felt a bulge to the abdomen and is concerned she may have a hernia. Patient states she does feel little bloated today as well. Patient states she has had some diarrhea after eating. Patient denies any nausea or vomiting. Patient denies any urinary symptoms. Patient states that the pain symptoms did worsen after she was doing Pilates. TRAVEL OUTSIDE OF THE [place] IN LAST 30 DAYS: No - HPI Patient complains to provider of: Abdominal pain, Diarrhea. No: Vomiting Onset: Other - 2 weeks Timing/Duration: Worse Quality of pain: Achy Pain Level: 3 Location: Other - Periumbilical Associated symptoms: Diarrhea. denies: Chest pain, Nausea, Urinary hesitancy, Urinary frequency, Urinary retention, Urinary urgency, Vaginal discharge, Vomiting Exacerbated by: Denies Relieved by: Denies Similar symptoms previously: No Recently seen / treated by doctor: No - Related Data Allergies/Adverse Reactions: Penicillins Allergy (Intermediate, Verified 08/29/19 11:41) Oral swelling, Hives shellfish derived Allergy (Intermediate, Verified 11/27/19 10:34) Hives amoxicillin Allergy (Verified 08/29/19 11:41) Oral swelling, Hives Sulfa (Sulfonamide Antibiotics) Allergy (Verified 08/29/19 11:41) Oral swelling, Hives Iodinated Contrast Media Adverse Reaction (Intermediate, Unverified 11/27/19 10:58) Hives morphine Adverse Reaction (Mild, Verified 08/29/19 11:41) VOMITING Past Medical History - General Information source: Patient - Social History Smoking Status: Current Every Day Smoker Frequency of alcohol use: None Drug Abuse: None Occupation: Teacher Lives with: Family Family History: Reviewed & Not Pertinent - Past Medical History Cardiac Medical History: Reports: Hx Hypertension - hx of, none at this time , no meds Neurological Medical History: Denies: Hx Cerebrovascular Accident, Hx Seizures Renal/ Medical History: Denies: Hx Peritoneal Dialysis Musculoskeletal Medical History: Reports Hx Arthritis - Back Past Surgical History: Reports: Hx Breast Surgery, Hx Cholecystectomy, Hx Gynecologic Surgery - tubal ligation and ablation - Immunizations Immunizations up to date: Yes Hx Diphtheria, Pertussis, Tetanus Vaccination: No Review of Systems - Review of Systems Constitutional: No symptoms reported. denies: Fever, Recent illness EENT: No symptoms reported Cardiovascular: No symptoms reported. denies: Chest pain Respiratory: No symptoms reported. denies: Cough, Short of breath Gastrointestinal: Abdominal pain, Diarrhea. denies: Nausea, Vomiting Genitourinary: No symptoms reported Female Genitourinary: No symptoms reported Musculoskeletal: No symptoms reported. denies: Back pain Skin: No symptoms reported Hematologic/Lymphatic: No symptoms reported Neurological/Psychological: No symptoms reported Physical Exam - Vital signs Vitals: Temp Pulse Resp BP Pulse Ox 98.7 F 92 17 151/81 H 97 11/27/19 08:34 11/27/19 08:34 11/27/19 08:34 11/27/19 08:34 11/27/19 08:34 - General General appearance: Appears well, Alert In distress: None - HEENT Head: Normocephalic, Atraumatic Eyes: Normal Conjunctiva: Normal Nasal: Normal Mouth/Lips: Normal Mucous membranes: Normal Neck: Normal, Supple. No: Lymphadenopathy - Respiratory Respiratory status: No respiratory distress Chest status: Nontender Breath sounds: Normal. No: Rales, Rhonchi, Stridor, Wheezing Chest palpation: Normal - Cardiovascular Rhythm: Regular Heart sounds: S1 appreciated, S2 appreciated Murmur: No - Abdominal Inspection: Morbidly Obese Distension: No distension Bowel sounds: Normal Tenderness: Tender - Epigastric, right upper quadrant, right lower quadrant, Guarding Organomegaly: No organomegaly - Back Back: CVA tenderness - Right - Extremities General upper extremity: Normal inspection, Normal strength General lower extremity: Normal inspection, Normal strength - Neurological Neuro grossly intact: Yes Cognition: Normal [place] Coma Scale Eye Opening: Spontaneous [place] Coma Scale Verbal: Oriented [place] Coma Scale Motor: Obeys Commands Ross Coma Scale Total: 15 - Psychological Associated symptoms: Normal affect, Normal mood - Skin Skin Temperature: Warm Skin Moisture: Dry Skin Color: Normal Course - Re-evaluation Re-evalutation: 11/27/19 11:46 CT scan reviewed, patient with incidental umbilical hernia, no inflammatory bowel changes, no appendicitis. Patient feels as though she probably worked out too hard when she did Pilates recently which aggravated this. Patient encouraged to follow-up with the surgeon on outpatient basis for further management. Patient presents with abdominal pain without signs of peritonitis or other life-threatening or serious etiology. Patient appears stable for discharge and has been instructed to return immediately if the symptoms worsen in any way. - Vital Signs Vital signs: Temp Pulse Resp BP Pulse Ox 98.4 F 74 20 133/93 H 99 11/27/19 12:01 11/27/19 12:01 11/27/19 12:01 11/27/19 12:01 11/27/19 12:01 - Laboratory Result Diagrams: 11/27/19 09:30 11/27/19 09:30 Laboratory results interpreted by me: 11/27/19 11/27/19 09:30 09:30 Sodium 135.6 L Alkaline Phosphatase 33 L Urine Ascorbic Acid 40 H Labs- Entire Visit 11/27/19 11/27/19 11/27/19 09:30 09:30 09:30 WBC 7.9 RBC 4.60 Hgb 14.1 Hct 40.8 MCV 89 MCH 30.6 MCHC 34.5 RDW 12.9 Plt Count 359 Lymph % (Auto) 29.7 Ector % (Auto) 6.3 Eos % (Auto) 3.4 Baso % (Auto) 0.7 Absolute Neuts (auto) 4.8 Absolute Lymphs (auto) 2.4 Absolute Monos (auto) 0.5 Absolute Eos (auto) 0.3 Absolute Basos (auto) 0.1 Seg Neutrophils % 59.9 Sodium 135.6 L Potassium 4.2 Chloride 101 Carbon Dioxide 28 Anion Gap 7 BUN 7 Creatinine 0.55 Est GFR ( Amer) > 60 Est GFR (MDRD) Non-Af > 60 Glucose 95 Calcium 9.5 Total Bilirubin 0.4 Direct Bilirubin 0.0 Neonat Total Bilirubin Not Reportable Neonat Direct Bilirubin Not Reportable Neonat Indirect Bili Not Reportable AST 26 ALT 21 Alkaline Phosphatase 33 L Total Protein 7.2 Albumin 4.2 Lipase 114.9 Serum HCG, Qual NEGATIVE Urine Color Urine Appearance Urine pH Ur Specific [place] Urine Protein Urine Glucose (UA) Urine Ketones Urine Blood Urine Nitrite Urine Bilirubin Urine Urobilinogen Ur Leukocyte Esterase Urine WBC (Auto) Urine RBC (Auto) Urine Bacteria (Auto) Squamous Epi Cells Auto Urine Mucus (Auto) Urine Ascorbic Acid 11/27/19 09:30 WBC RBC Hgb Hct MCV MCH MCHC RDW Plt Count Lymph % (Auto) Ector % (Auto) Eos % (Auto) Baso % (Auto) Absolute Neuts (auto) Absolute Lymphs (auto) Absolute Monos (auto) Absolute Eos (auto) Absolute Basos (auto) Seg Neutrophils % Sodium Potassium Chloride Carbon Dioxide Anion Gap BUN Creatinine Est GFR ( Amer) Est GFR (MDRD) Non-Af Glucose Calcium Total Bilirubin Direct Bilirubin Neonat Total Bilirubin Neonat Direct Bilirubin Neonat Indirect Bili AST ALT Alkaline Phosphatase Total Protein Albumin Lipase Serum HCG, Qual Urine Color YELLOW Urine Appearance SLIGHTLY-CLOUDY Urine pH 5.0 Ur Specific [place] 1.023 Urine Protein NEGATIVE Urine Glucose (UA) NEGATIVE Urine Ketones NEGATIVE Urine Blood NEGATIVE Urine Nitrite NEGATIVE Urine Bilirubin NEGATIVE Urine Urobilinogen NEGATIVE Ur Leukocyte Esterase NEGATIVE Urine WBC (Auto) 2 Urine RBC (Auto) 1 Urine Bacteria (Auto) TRACE Squamous Epi Cells Auto 8 Urine Mucus (Auto) MOD Urine Ascorbic Acid 40 H - Diagnostic Test Radiology reviewed: Reports reviewed Discharge - Discharge Clinical Impression: Abdominal pain Qualifiers: Abdominal location: unspecified location Qualified Code(s): R10.9 - Unspecified abdominal pain Umbilical hernia Qualifiers: Obstruction and gangrene presence: without obstruction or gangrene Qualified Code(s): K42.9 - Umbilical hernia without obstruction or gangrene Condition: Stable Disposition: HOME, SELF-CARE Instructions: Abdominal Pain ([facility]), Umbilical Hernia ([facility]) Additional Instructions: Return immediately for any new or worsening symptoms Followup with your primary care provider, call tomorrow to make a followup appointment Follow-up with a general surgeon for further management of your umbilical hernia Referrals: ARIS AGUILAR PA-C [Primary Care Provider] - Follow up as needed [facility] [Provider Group] - Follow up as needed
[2019-11-27 09:58] LABS: ABSOLUTE BASOPHILS # (AUTO) 0.1 10^3/uL (0.0-0.2); ABSOLUTE EOSINOPHILS # (AUTO) 0.3 10^3/uL (0.0-0.6); ABSOLUTE LYMPHOCYTES (AUTO) 2.4 10^3/uL (0.5-4.7); ABSOLUTE MONOCYTES (AUTO) 0.5 10^3/uL (0.1-1.4); ABSOLUTE NEUT (AUTO) 4.8 10^3/uL (1.7-8.2); BASOPHILS % (AUTO) 0.7 % (0-2); EOSINOPHILS % (AUTO) 3.4 % (0-6); HEMATOCRIT 40.8 % (36.0-47.0); HEMOGLOBIN 14.1 g/dL (12.0-15.5); LYMPHOCYTES % (AUTO) 29.7 % (13-45); MEAN CORPUSCULAR HEMOGLOBIN 30.6 pg (27.0-33.4); MEAN CORPUSCULAR HGB CONC 34.5 g/dL (32.0-36.0); MEAN CORPUSCULAR VOLUME 89 fl (80-97); MONOCYTES % (AUTO) 6.3 % (3-13); PLATELET COUNT 359 10^3/uL (150-450); RED CELL DISTRIBUTION WIDTH 12.9 % (11.5-14.0); SEGMENTED NEUTROPHILS % (AUTO) 59.9 % (42-78); TOTAL CELLS COUNTED % (AUTO) 100 %; WHITE BLOOD COUNT 7.9 10^3/uL (4.0-10.5)
[2019-11-27 10:05] LABS: APPEARANCE,URINE SLIGHTLY-CLOUDY; BILIRUBIN,URINE NEGATIVE (NEGATIVE); COLOR,URINE YELLOW; GLUCOSE, URINE NEGATIVE (NEGATIVE); KETONES,URINE NEGATIVE (NEGATIVE); LEUKOCYTE ESTERASE,URINE NEGATIVE (NEGATIVE); NITRITE,URINE NEGATIVE (NEGATIVE); PROTEIN,URINE NEGATIVE (NEGATIVE); URINE SPECIFIC GRAVITY 1.023; UROBILINOGEN,URINE NEGATIVE mg/dL (<2.0)
[2019-11-27 10:13] LABS: ALBUMIN 4.2 g/dL (3.5-5.0); ALKALINE PHOSPHATASE 33 U/L (38-126); ANION GAP 7 (5-19); ASPARTATE AMINO TRANSFERASE 26 U/L (14-36); BILIRUBIN,TOTAL 0.4 mg/dL (0.2-1.3); BLOOD UREA NITROGEN 7 mg/dL (7-20); CALCIUM 9.5 mg/dL (8.4-10.2); CARBON DIOXIDE 28 mmol/L (22-30); CHLORIDE 101 mmol/L (98-107); GLUCOSE 95 mg/dL (75-110); POTASSIUM 4.2 mmol/L (3.6-5.0); TOTAL PROTEIN 7.2 g/dL (6.3-8.2)
--- NOTE | 2019-11-27 11:23 | RADIOLOGY REPORT (SQ) ---
EXAM DESCRIPTION: CT ABD/PELVIS NO ORAL OR IV IMAGES COMPLETED DATE/TIME: 11/27/2019 10:59 am REASON FOR STUDY: R flank, RUQ, RLQ pain COMPARISON: 2017 TECHNIQUE: CT scan of the abdomen and pelvis performed without intravenous or oral contrast. Images reviewed with lung, soft tissue, and bone windows. Reconstructed coronal and sagittal MPR images revi ewed. All images stored on PACS. All CT scanners at this facility use dose modulation, iterative reconstruction, and/or weight based d osing when appropriate to reduce radiation dose to as low as reasonably achievable (ALARA). [facility]: Dose Right [facility]: CareDose [facility]: Dose Right [facility]: Teradose 4D [facility]: Smart Gigalocal RADIATION DOSE: CT Rad equipment meets quality standard of care and radiation dose reduction techniq ues were employed. CTDIvol: 16.7 mGy. DLP: 957 mGy-cm.mGy. LIMITATIONS: None. FINDINGS: LOWER CHEST: No significant findings. No nodules or infiltrates. NON-CONTRASTED LIVER, SPLEEN, ADRENALS: Evaluation limited by lack of IV contrast. No identified sign ificant masses. PANCREAS: No masses. No peripancreatic inflammatory changes. GALLBLADDER: Surgically absent. RIGHT KIDNEY AND URETER: No solid masses. No significant calcification. No hydronephrosis or hydroure ter. LEFT KIDNEY AND URETER: No solid masses. No significant calcification. No hydronephrosis or hydrouret er. AORTA AND RETROPERITONEUM: No aneurysm. No retroperitoneal masses or adenopathy. BOWEL AND PERITONEAL CAVITY: No obvious masses or inflammatory changes. No free fluid. APPENDIX: Normal. PELVIS, BLADDER, AND ABDOMINAL WALL:No abnormal masses. No free fluid. Bladder normal. Small fat con taining umbilical hernia. BONES: No significant findings. OTHER: No other significant finding. IMPRESSION: NO SIGNIFICANT OR ACUTE PROCESS IN THE ABDOMEN OR PELVIS. TECHNICAL DOCUMENTATION: JOB ID: [id number] Quality ID # [id number]: Final reports with documentation of one or more dose reduction techniques (e.g., Au tomated exposure control, adjustment of the mA and/or kV according to patient size, use of iterative reconstruction technique) 2010 [employer]- All Rights Reserved Reading location - IP/workstation name: [email or web address]
[2019-11-27 12:03] VITALS: BP 133/93
== END 2019-11-27 12:04 | disposition home or self-care (01) ==
LOC: ER 08:31
DX: K42.9 Umbilical hernia without obstruction or gangrene (principal); R10.33 Periumbilical pain; R10.816 Epigastric abdominal tenderness; R10.811 Right upper quadrant abdominal tenderness; R10.813 Right lower quadrant abdominal tenderness; R19.7 Diarrhea, unspecified; I10 Essential (primary) hypertension; F17.200 Nicotine dependence, unspecified, uncomplicated; Z90.49 Acquired absence of other specified parts of digestive tract; Z98.51 Tubal ligation status; Z88.0 Allergy status to penicillin; Z91.013 Allergy to seafood; Z88.2 Allergy status to sulfonamides
CPT/HCPCS: 99284; 96360; 36415; 83690; 84703; 85025; 80053; 81001; 74176; J7030

== ENCOUNTER 2019-12-14 14:40 | Emergency (ER) | payer SELFPAY ==
[2019-12-14] MEDS ORDERED: ONDANSETRON HCL INJ/PF 4 MG/2 ML SDV IV ONE (15:13)
--- NOTE | 2019-12-14 15:14 | ER Document Report ---
ED Medical Screen (RME) - General Chief Complaint: Abdominal Pain Stated Complaint: ABDOMINAL PAIN Time Seen by Provider: 12/14/19 15:10 Primary Care Provider: ARIS AGUILAR PA-C [Primary Care Provider] - Follow up as needed Mode of Arrival: Ambulatory Information source: Patient Notes: 44-year-old female patient with history of 2-week long episode of abdominal pain in the right upper quadrant. Patient reports she was seen here for this. She states she went and saw her primary care provider yesterday, who prescribed her Percocet and stated that he thought she may have some rib fractures from the pain. Patient reports the pain is worse with any movement or with intake of any food. She denies any vomiting or diarrhea. Tenderness to the right upper quadrant. I have greeted and performed a rapid initial assessment of this patient. A comprehensive ED assessment and evaluation of the patient, analysis of test results and completion of the medical decision making process will be conducted by additional ED providers. I have specifically instructed the patient or family members with the patient to immediately return to any nursing staff should anything change in the patient's condition or with their chief complaint. TRAVEL OUTSIDE OF THE [place] IN LAST 30 DAYS: No - Related Data Allergies/Adverse Reactions: Penicillins Allergy (Intermediate, Verified 12/14/19 15:08) Oral swelling, Hives shellfish derived Allergy (Intermediate, Verified 12/14/19 15:08) Hives amoxicillin Allergy (Verified 12/14/19 15:08) Oral swelling, Hives Sulfa (Sulfonamide Antibiotics) Allergy (Verified 12/14/19 15:08) Oral swelling, Hives Iodinated Contrast Media Adverse Reaction (Intermediate, Verified 12/14/19 15:08) Hives morphine Adverse Reaction (Mild, Verified 12/14/19 15:08) VOMITING Past Medical History - Social History Frequency of alcohol use: None Drug Abuse: None - Past Medical History Cardiac Medical History: Reports: Hx Hypertension - hx of, none at this time , no meds Denies: Hx Coronary Artery Disease, Hx Heart Attack Pulmonary Medical History: Denies: Hx Asthma, Hx Bronchitis, Hx COPD, Hx Pneumonia Neurological Medical History: Denies: Hx Cerebrovascular Accident, Hx Seizures Renal/ Medical History: Denies: Hx Peritoneal Dialysis Musculoskeltal Medical History: Reports Hx Arthritis - Back Past Surgical History: Reports: Hx Breast Surgery, Hx Cholecystectomy, Hx Gynecologic Surgery - tubal ligation and ablation - Immunizations Immunizations up to date: Yes Hx Diphtheria, Pertussis, Tetanus Vaccination: No Physical Exam - Vital signs Vitals: Temp Pulse Resp BP Pulse Ox 98.1 F 91 18 175/100 H 96 12/14/19 14:41 12/14/19 14:41 12/14/19 14:41 12/14/19 14:41 12/14/19 14:41 Course - Vital Signs Vital signs: Temp Pulse Resp BP Pulse Ox 98.1 F 91 18 175/100 H 96 12/14/19 15:09 12/14/19 14:41 12/14/19 14:41 12/14/19 14:41 12/14/19 14:41 Doctor's Discharge - Discharge Referrals: ARIS AGUILAR PA-C [Primary Care Provider] - Follow up as needed
--- NOTE | 2019-12-14 15:47 | RADIOLOGY REPORT (SQ) ---
EXAM DESCRIPTION: RIBS RIGHT W/PA CHEST IMAGES COMPLETED DATE/TIME: 12/14/2019 3:34 pm REASON FOR STUDY: RUQ pain COMPARISON: None. TECHNIQUE: Frontal view of the chest and additional views of the right ribs acquired. NUMBER OF VIEWS: Three view. LIMITATIONS: None. FINDINGS: FRONTAL CXR: No pneumothorax. No pleural effusion. No atelectasis or infiltrates. RIBS: No displaced rib fractures. No lytic or blastic bony lesions. OTHER: Small globular calcific density at the right supraspinatus insertion, possibly calcific tendin osis. IMPRESSION: NO PNEUMOTHORAX. NO DISPLACED RIB FRACTURES. COMMENT: SITE OF TRAUMA/COMPLAINT MARKED/STAMP COMPLETED: YES. TECHNICAL DOCUMENTATION: JOB ID: [id number] 2010 [employer]- All Rights Reserved Reading location - IP/workstation name: [email or web address]
[2019-12-14 15:48] LABS: ABSOLUTE BASOPHILS # (AUTO) 0.1 10^3/uL (0.0-0.2); ABSOLUTE EOSINOPHILS # (AUTO) 0.3 10^3/uL (0.0-0.6); ABSOLUTE MONOCYTES (AUTO) 0.8 10^3/uL (0.1-1.4); ABSOLUTE NEUT (AUTO) 6.4 10^3/uL (1.7-8.2); BASOPHILS % (AUTO) 0.7 % (0-2); EOSINOPHILS % (AUTO) 2.9 % (0-6); HEMATOCRIT 42.7 % (36.0-47.0); HEMOGLOBIN 14.7 g/dL (12.0-15.5); LYMPHOCYTES % (AUTO) 28.3 % (13-45); MEAN CORPUSCULAR HEMOGLOBIN 30.8 pg (27.0-33.4); MEAN CORPUSCULAR HGB CONC 34.4 g/dL (32.0-36.0); MEAN CORPUSCULAR VOLUME 90 fl (80-97); MONOCYTES % (AUTO) 7.4 % (3-13); PLATELET COUNT 375 10^3/uL (150-450); RED BLOOD COUNT 4.76 10^6/uL (3.72-5.28); RED CELL DISTRIBUTION WIDTH 12.8 % (11.5-14.0); SEGMENTED NEUTROPHILS % (AUTO) 60.7 % (42-78); TOTAL CELLS COUNTED % (AUTO) 100 %; WHITE BLOOD COUNT 10.6 10^3/uL (4.0-10.5)
[2019-12-14 15:49] LABS: APPEARANCE,URINE SLIGHTLY-CLOUDY; BILIRUBIN,URINE NEGATIVE (NEGATIVE); COLOR,URINE YELLOW; GLUCOSE, URINE NEGATIVE (NEGATIVE); KETONES,URINE NEGATIVE (NEGATIVE); LEUKOCYTE ESTERASE,URINE NEGATIVE (NEGATIVE); NITRITE,URINE NEGATIVE (NEGATIVE); PROTEIN,URINE NEGATIVE (NEGATIVE); URINE SPECIFIC GRAVITY 1.017; UROBILINOGEN,URINE NEGATIVE mg/dL (<2.0)
[2019-12-14 16:09] LABS: ALBUMIN 4.4 g/dL (3.5-5.0); ALKALINE PHOSPHATASE 29 U/L (38-126); ANION GAP 6 (5-19); ASPARTATE AMINO TRANSFERASE 25 U/L (14-36); BILIRUBIN,TOTAL 0.4 mg/dL (0.2-1.3); BLOOD UREA NITROGEN 9 mg/dL (7-20); CALCIUM 9.2 mg/dL (8.4-10.2); CARBON DIOXIDE 28 mmol/L (22-30); CHLORIDE 102 mmol/L (98-107); GLUCOSE 78 mg/dL (75-110); POTASSIUM 4.4 mmol/L (3.6-5.0); TOTAL PROTEIN 7.4 g/dL (6.3-8.2)
--- NOTE | 2019-12-14 16:17 | RADIOLOGY REPORT (SQ) ---
EXAM DESCRIPTION: U/S ABDOMEN LIMITED W/O DOP IMAGES COMPLETED DATE/TIME: 12/14/2019 3:58 pm REASON FOR STUDY: RUQ pain COMPARISON: None. TECHNIQUE: Dynamic and static grayscale images acquired of the abdomen and recorded on PACS. Additio nal selected color Doppler and spectral images recorded. LIMITATIONS: None. FINDINGS: PANCREAS: No masses. The tail of pancreas was poorly seen. LIVER: No masses. Echotexture normal. LIVER VASCULATURE: Normal directional flow of the main portal vein and hepatic veins. GALLBLADDER: Surgically absent. ULTRASOUND-DETECTED MORRIS'S SIGN: Not applicable. INTRAHEPATIC DUCTS AND COMMON DUCT: Common bile duct is prominent at 9 mm, likely secondary to the pr ior cholecystectomy. INFERIOR VENA CAVA: Not imaged. AORTA: No aneurysm. RIGHT KIDNEY: Normal size, 10.4 cm. Normal echogenicity. No solid or suspicious masses. No hydroneph rosis. No calcifications. PERITONEAL AND RIGHT PLEURAL SPACE: No ascites or effusions. OTHER: No other significant findings. IMPRESSION: Normal postcholecystectomy ultrasound of the abdomen. TECHNICAL DOCUMENTATION: JOB ID: [id number] 2010 [employer]- All Rights Reserved Reading location - IP/workstation name: [email or web address]
[2019-12-14] MEDS ORDERED: HYDROCODONE/ACETAMINOPHEN 5-325 MG (6 TAB/ER DISP) PO PRN (18:35)
[2019-12-14] MEDS ORDERED: ONDANSETRON ODT 4 MG TAB (6 TAB/ER DISP) PO PRN (18:35)
[2019-12-14] MEDS ORDERED: MAGNESIUM CITRATE 296 ML BOTTLE PO ONE (18:36)
--- NOTE | 2019-12-14 18:41 | ER Document Report ---
ED General - General Chief Complaint: Abdominal Pain Stated Complaint: ABDOMINAL PAIN Time Seen by Provider: 12/14/19 15:10 Primary Care Provider: ARIS AGUILAR PA-C [Primary Care Provider] - Follow up as needed Mode of Arrival: Ambulatory TRAVEL OUTSIDE OF THE [place] IN LAST 30 DAYS: No - HPI Notes: Patient is a 44-year-old female who presents to the emergency department for evaluation of pain in her right upper quadrant and right lower ribs. Is been ongoing for several weeks. She was seen here a few weeks ago by the nurse practitioner. She states the pain was similar then but it has worsened. She states she was diagnosed with an umbilical hernia. She cannot get in with surgery. She states that her pain seems to be worsened by food, also by touching the area. She saw a primary care provider, who thought maybe she had a rib injury, as she seem to be tender over that area as well. She states her pain is not worsened by deep breaths. She denies any shortness of breath. She has no PE risk factors. She states that she had a bowel movement yesterday which was small, and states she is mildly constipated. She denies any melena or hematochezia. No urinary symptoms. - Related Data Allergies/Adverse Reactions: Penicillins Allergy (Intermediate, Verified 12/14/19 15:08) Oral swelling, Hives shellfish derived Allergy (Intermediate, Verified 12/14/19 15:08) Hives amoxicillin Allergy (Verified 12/14/19 15:08) Oral swelling, Hives Sulfa (Sulfonamide Antibiotics) Allergy (Verified 12/14/19 15:08) Oral swelling, Hives Iodinated Contrast Media Adverse Reaction (Intermediate, Verified 12/14/19 15:08) Hives morphine Adverse Reaction (Mild, Verified 12/14/19 15:08) VOMITING Past Medical History - General Information source: Patient - Social History Smoking Status: Current Every Day Smoker Frequency of alcohol use: None Drug Abuse: None Family History: Reviewed & Not Pertinent Patient has homicidal ideation: No - Past Medical History Cardiac Medical History: Reports: Hx Hypertension - hx of, none at this time , no meds Denies: Hx Coronary Artery Disease, Hx Heart Attack Pulmonary Medical History: Denies: Hx Asthma, Hx Bronchitis, Hx COPD, Hx Pneumonia Neurological Medical History: Denies: Hx Cerebrovascular Accident, Hx Seizures Renal/ Medical History: Denies: Hx Peritoneal Dialysis Musculoskeletal Medical History: Reports Hx Arthritis - Back Skin Medical History: Reports Other - Skin graft to right breast Past Surgical History: Reports: Hx Breast Surgery - Skin graft after frequent infections, status post breast reduction, Hx Cholecystectomy, Hx Gynecologic Surgery - tubal ligation and ablation - Immunizations Immunizations up to date: Yes Hx Diphtheria, Pertussis, Tetanus Vaccination: No Review of Systems - Review of Systems Cardiovascular: See HPI Gastrointestinal: See HPI -: Yes All other systems reviewed and negative Physical Exam - Vital signs Vitals: Temp Pulse Resp BP Pulse Ox 98.1 F 91 18 175/100 H 96 12/14/19 14:41 12/14/19 14:41 12/14/19 14:41 12/14/19 14:41 12/14/19 14:41 - Notes Notes: This is a pleasant 44-year-old female who appears her stated age, mild amount of distress. She is visibly uncomfortable. Head is normocephalic and atraumatic, pupils are equal round, reactive to light. Uncus is moist. Uvula is midline. Neck is supple without meningismus. Heart is regular rate and rhythm, lungs are clear to auscultation bilaterally. Patient is markedly tender to palpation to the soft tissue about the lower right quadrant of the right breast and the soft tissue overlying the right flank. No erythema, induration, fluctuance noted. She has skin changes from scarring present on the anterior breast. Abdomen is obese, tender in the right upper quadrant without rebound or guarding. I do not appreciate any clear umbilical hernia. Extremities without cyanosis or clubbing. Skin is warm and dry. Peripheral pulses are equal. Posterior calves are nontender. Course - Re-evaluation Re-evalutation: 12/14/19 18:39 Patient presents to the emergency department for evaluation. She laboratory investigations and imaging is ordered through triage. The patient had a CT scan a month ago. I did review that as well. Unfortunately it was IV contrasted, as the patient has had hives as well as angioedema with IV contrast in the past. CT scan showed an incidental umbilical hernia, unremarkable. I do not suspect that as an etiology for this patient's pain. Her laboratory investigations were largely unremarkable. I do not have a clear etiology for this patient's pain in the subcutaneous tissues as well as in the abdomen. Certainly any subcutaneous pain should not be made worse by food. She does not have any PE risk factors. She did not have any melena or hematochezia. Her hemoglobin is stable. Her pain is not pleuritic in nature, so I am not overly concerned about a pulmonary embolus. Patient admits she has been working out more frequently, thinks perhaps that is the cause of the pain. She also notes that she has some chronic constipation issues. She has had abdominal pain in the past that was helped with treatment of this issue. She states she had success in the past with magnesium citrate. This was ordered. I will send her home with a small amount of pain and nausea medicine as well. The nausea medicine is just to offset the nausea from the [place], she does not have nausea at baseline. Otherwise she is told she needs to follow-up with primary care in 1 to 2 days, return to the ED with worsening or new concerning symptoms of any sort. - Vital Signs Vital signs: Temp Pulse Resp BP Pulse Ox 98.1 F 91 18 175/100 H 96 12/14/19 15:09 12/14/19 14:41 12/14/19 14:41 12/14/19 14:41 12/14/19 14:41 - Laboratory Result Diagrams: 12/14/19 15:24 12/14/19 15:24 Laboratory results interpreted by me: 12/14/19 12/14/19 15:24 15:24 WBC 10.6 H Sodium 135.9 L Alkaline Phosphatase 29 L - Diagnostic Test Radiology reviewed: Reports reviewed Radiology results interpreted by me: 12/14/19 18:41 Abdomen Ultrasound 12/14/19 15:12 IMPRESSION: Normal postcholecystectomy ultrasound of the abdomen. Ribs w/Chest X-Ray 12/14/19 15:12 IMPRESSION: NO PNEUMOTHORAX. NO DISPLACED RIB FRACTURES. Discharge - Discharge Clinical Impression: Right-sided chest wall pain, Right upper quadrant pain Condition: Stable Disposition: HOME, SELF-CARE Instructions: Abdominal Pain ([facility]), Chest Wall Pain ([facility]) Additional Instructions: No clear cause is found for her pain today. Please take medications as prescribed. Take all of the magnesium citrate at home and one dosage. Take N orco as needed for severe pain, please be aware that you can get dizziness, drowsiness, and constipation with this medication. Zofran as needed for nausea. Follow-up with primary care in 1 to 2 days. If your pain worsens, or you develop new or concerning symptoms of any sort, please return immediately to the emergency department for reevaluation. Referrals: ARIS AGUILAR PA-C [Primary Care Provider] - Follow up as needed
[2019-12-14 18:44] VITALS: BP 137/79
== END 2019-12-14 18:53 | disposition home or self-care (01) ==
LOC: ER 14:40
DX: R10.11 Right upper quadrant pain (principal); R07.89 Other chest pain; Z88.0 Allergy status to penicillin; Z88.2 Allergy status to sulfonamides; Z91.013 Allergy to seafood; Z90.49 Acquired absence of other specified parts of digestive tract
CPT/HCPCS: 99284; 36415; 83690; 85025; 80053; 81001; 71101; 76705; J3490

== ENCOUNTER → 2020-03-11 | Outpatient (CLI) | payer SELFPAY ==
[2020-03-11 13:29] VITALS: BP 162/83
--- NOTE | 2020-03-11 13:29 | ER RDC ASSESSMENT REPORT ---
Intake - In the Last 14 days Have you traveled outside [place]?: No Have you been in close contact with someone CONFIRMED: No Worked in Healthcare?: No - Symptoms Subjective Fever([facility] feverish): No Chills: No Muscule Aches: Yes Runny Nose: No Sore Throat: Yes Cough (New or worsening chronic cough): No Shortness of breath: Yes Nausea or Vomiting: No Headache: Yes Abdominal Pain: Yes Diarrhea(3 or more loose stools in last 24 hours): Yes - Do you have any of the following Chronic lung disease: Asthma or emphysema or COPD: No Cystic Fibrosis: No Diabetes: No High Blood Pressure: No Cardiovascular Disease: No Chronic Kidney Disease: No Chronic Liver Disease: No Chronic blood disorder like Sickle Cell Disease: No Weak immune system due to disease or medication: No Neurologic condition that limits movement: No Developmental delay - Moderate to Severe: No Recent (within past 2 weeks) or current : No Morbid Obesity (>100 pounds over ideal weight): No - Objective Temperature: 97.6 F Pulse Rate: 83 Respiratory Rate: 18 Blood Pressure: 162/83 O2 Sat by Pulse Oximetry: 99 Objective: Patient is a well-appearing 44-year-old female, who presents today for COVID-19 screening. Disposition: Home; Selfcare General - General Stated Complaint: COVID-19 screening Mode of Arrival: Ambulatory Information source: Patient Notes: The patient was evaluated during the global COVID-19 pandemic. That diagnosis was suspected/considered upon initial presentation. Their evaluation, treatment, and testing was consistent with current guidelines for patients who present with complaints or symptoms that may be related to COVID-19. Patient denies active diagnoses of hypertension, reports she believes elevated BP today is a result of being nervous about COVID testing. Patient states she will continue to monitor elevated blood pressure today, and follow-up with her primary care provider for evaluation and treatment as appropriate - HPI Patient complains to provider of: Upper respiratory symptoms Onset: Last week Onset/Duration: Persistent Quality of pain: Achy Severity: Mild Pain Level: 2 Context: Generalized body aches. Associated symptoms: Body/muscle aches, Diarrhea, Headache, Shortness of breath, Sore throat, Other - Abdominal pain Exacerbated by: Denies Relieved by: Denies Similar symptoms previously: No Recently seen / treated by doctor: No - Related Data Allergies/Adverse Reactions: Penicillins Allergy (Intermediate, Verified 12/14/19 15:08) Oral swelling, Hives shellfish derived Allergy (Intermediate, Verified 12/14/19 15:08) Hives amoxicillin Allergy (Verified 12/14/19 15:08) Oral swelling, Hives Sulfa (Sulfonamide Antibiotics) Allergy (Verified 12/14/19 15:08) Oral swelling, Hives Iodinated Contrast Media Adverse Reaction (Intermediate, Verified 12/14/19 15:08) Hives morphine Adverse Reaction (Mild, Verified 12/14/19 15:08) VOMITING Past Medical History - Social History Smoking Status: Current Every Day Smoker Cigarette use (# per day): Yes - 1 pack/day Chew tobacco use (# tins/day): No Smoking Education Provided: Yes Frequency of alcohol use: Occasional Drug Abuse: None Occupation: Teacher Lives with: Family Family History: Reviewed & Not Pertinent Patient has suicidal ideation: No Patient has homicidal ideation: No - Past Medical History Cardiac Medical History: Reports: Hx Hypertension - hx of, none at this time , no meds Denies: Hx Coronary Artery Disease, Hx Heart Attack Pulmonary Medical History: Denies: Hx Asthma, Hx Bronchitis, Hx COPD, Hx Pneumonia Neurological Medical History: Denies: Hx Cerebrovascular Accident, Hx Seizures Renal/ Medical History: Denies: Hx Peritoneal Dialysis Musculoskeletal Medical History: Reports Hx Arthritis - Back Past Surgical History: Reports: Hx Breast Surgery - Skin graft after frequent infections, status post breast reduction, Hx Cholecystectomy, Hx Gynecologic Surgery - tubal ligation and ablation Physical Exam - General General appearance: Appears well In distress: None Notes: PHYSICAL EXAMINATION: GENERAL: Well-appearing and in no acute distress. HEAD: Atraumatic, normocephalic. EYES: sclera anicteric, conjunctiva are normal. ENT: nares patent. Moist mucous membranes. NECK: Normal range of motion, supple without lymphadenopathy. LUNGS: CTAB and equal. No wheezes rales or rhonchi. HEART: Regular rate and rhythm without murmurs. EXTREMITIES: Normal range of motion, no pitting edema. No cyanosis. BACK: No midline tenderness, no step-off or deformity. No CVA tenderness. NEUROLOGICAL: Cranial nerves grossly intact. Normal speech. Normal gait. PSYCH: Normal mood, normal affect. SKIN: Warm, Dry, normal color and turgor, no obvious lesions or rash noted. Diagnostic Results Laboratory Results: Patient advised at this time they are considered a Person Under Investigation (PUI) for the COVID-19 Coronavirus. They have been made aware it is currently taking 5-7 days to receive their results, and The [facility] Department will call to advise them of a POSITIVE result, and an [facility] steam turbine operator will call to advise of a NEGATIVE result. Patient Education/Counseling Counseling/Education: Patient presents with upper respiratory symptoms worrisome for possible COVID- 19. Patient does not have symptoms worrisome as an emergency such as difficulty breathing, shortness of breath, chest pain, pressure, confusion or cyanosis. Patient appears suitable for discharge. Patient's vital signs are stable and patient is nontoxic in appearance. Good return precautions have been discussed with patient, patient verbalized understanding and is agreeable with discharge plan of care at this time. Patient provided COVID-19 discharge instructions to include: As a person under investigation for COVID-19, the [facility] of Health and Human Services, division of public health advises you to adhere to the following guidance until your test results are reported to you. If your test result is positive, you will receive additional information from your provider and your local health department at that time. Remain at home until you are cleared by the health provider or public health authorities. Keep a log of visitors to your home, notify any visitors to your home of your isolation status. If you plan to move to a new address or leave the county, notify the local health department in your County. Call your doctor or seek care if you have an urgent medical need. Before seeking medical care, call ahead to get instructions from the provider before arriving at the medical office clinic or hospital. Notify them that you are being tested for the virus that causes COVID-19 so that arrangements can be made, as necessary, to prevent transmission to others in the healthcare setting. Next, notify the local health department in your county. If a medical emergency arises and you need to call 911, inform dispatch and the first responders that you are being tested for the virus that causes COVID-19. Next, notify the local health department in your county. Patient provided education on smoking cessation and the harmful effects of smoking, especially in the presence of Co-morbid conditions such as Hypertension, Diabetes, and/or other chronic illnesses. Patient verbalized understanding of smoking cessation education, and the increased health benefits of quitting. Guidance for worsening S/SX: For worsening symptoms, patient has been advised to contact their Primary Care Provider, or go to the nearest Emergency Department. RDC Discharge - Discharge Clinical Impression: COVID-19 Screening URI (upper respiratory infection) Qualifiers: URI type: unspecified URI Qualified Code(s): J06.9 - Acute upper respiratory infection, unspecified Condition: Stable Disposition: Home; Selfcare
== END ==
LOC: RDC 11:21
PROVIDERS: ATTEND Nurse Practitioner Family
DX: Z20.828 Contact with and (suspected) exposure to other viral communicable diseases (principal)
CPT/HCPCS: 87635; C9803; 99201; 99211

== ENCOUNTER 2020-05-16 21:18 | Emergency (ER) | payer OTHER, SELFPAY ==
[2020-05-16] MEDS ORDERED: NORMAL SALINE 1000 ML 1,000 ML IV ONE (22:02)
--- NOTE | 2020-05-16 22:06 | ER Document Report ---
ED Medical Screen (RME) - General Chief Complaint: Abdominal Pain Stated Complaint: ABDOMINAL PAIN Time Seen by Provider: 05/16/20 21:54 Primary Care Provider: ARIS AGUILAR PA-C [Primary Care Provider] - Follow up as needed TRAVEL OUTSIDE OF THE [place] IN LAST 30 DAYS: No - HPI Notes: 05/16/20 22:03 45-year-old female to the emergency department with complaints of right-sided a bdominal pain that has gotten significantly worse in the past 4 days. She admits to nausea and vomiting. She states that she has a known ventral hernia that supposed to be repaired by Dr. Faith out of [place] in the next week or so. She states that her pain is just been getting worse and worse. She is had difficulty with bowel movements. She states she took 2 laxatives and only had watery bowel movement. She denies any fevers or chills. She does admit to hot flashes. She states that every time she eats she has significantly worsening pain. She does not have a gallbladder. She also reports right sided breast pain. She states that she has had a graft to this breast before. It is been infected multiple times. I performed a brief medical screening exam on the patient determined that the patient needs further evaluation and management by main side provider. I have placed initial orders to help expedite care. - Related Data Allergies/Adverse Reactions: Penicillins Allergy (Intermediate, Verified 12/14/19 15:08) Oral swelling, Hives shellfish derived Allergy (Intermediate, Verified 12/14/19 15:08) Hives amoxicillin Allergy (Verified 12/14/19 15:08) Oral swelling, Hives Sulfa (Sulfonamide Antibiotics) Allergy (Verified 12/14/19 15:08) Oral swelling, Hives Iodinated Contrast Media Adverse Reaction (Intermediate, Verified 12/14/19 15:08) Hives morphine Adverse Reaction (Mild, Verified 12/14/19 15:08) VOMITING Past Medical History - Past Medical History Cardiac Medical History: Reports: Hx Hypertension - hx of, none at this time , no meds Denies: Hx Coronary Artery Disease, Hx Heart Attack Pulmonary Medical History: Denies: Hx Asthma, Hx Bronchitis, Hx COPD, Hx Pneumonia Neurological Medical History: Denies: Hx Cerebrovascular Accident, Hx Seizures Renal/ Medical History: Denies: Hx Peritoneal Dialysis Musculoskeltal Medical History: Reports Hx Arthritis - Back Past Surgical History: Reports: Hx Breast Surgery - Skin graft after frequent infections, status post breast reduction, Hx Cholecystectomy, Hx Gynecologic Surgery - tubal ligation and ablation - Immunizations Immunizations up to date: Yes Hx Diphtheria, Pertussis, Tetanus Vaccination: No Doctor's Discharge - Discharge Referrals: ARIS AGUILAR PA-C [Primary Care Provider] - Follow up as needed
--- NOTE | 2020-05-16 23:13 | RADIOLOGY REPORT (SQ) ---
EXAM DESCRIPTION: X-RAY CHEST- One View CLINICAL HISTORY: Right-sided chest pain. COMPARISON: December 14, 2019 TECHNIQUE: Single view of the chest. FINDINGS: There are no discrete air space infiltrates, pneumothoraces or pleural effusions. The pulmonary vascularity is normal. The cardiomediastinal silhouette is normal in size. No suspicious lytic or blastic osseous lesions are identified. IMPRESSION: There are no acute lung parenchymal findings.
[2020-05-16 23:23] LABS: ABSOLUTE BASOPHILS # (AUTO) 0.1 10^3/uL (0.0-0.2); ABSOLUTE EOSINOPHILS # (AUTO) 0.3 10^3/uL (0.0-0.6); ABSOLUTE LYMPHOCYTES (AUTO) 3.7 10^3/uL (0.5-4.7); ABSOLUTE MONOCYTES (AUTO) 0.9 10^3/uL (0.1-1.4); BASOPHILS % (AUTO) 0.6 % (0-2); EOSINOPHILS % (AUTO) 2.3 % (0-6); HEMATOCRIT 42.1 % (36.0-47.0); HEMOGLOBIN 14.4 g/dL (12.0-15.5); MEAN CORPUSCULAR HEMOGLOBIN 30.3 pg (27.0-33.4); MEAN CORPUSCULAR HGB CONC 34.2 g/dL (32.0-36.0); MEAN CORPUSCULAR VOLUME 89 fl (80-97); MONOCYTES % (AUTO) 7.1 % (3-13); PLATELET COUNT 387 10^3/uL (150-450); RED BLOOD COUNT 4.76 10^6/uL (3.72-5.28); RED CELL DISTRIBUTION WIDTH 12.7 % (11.5-14.0); TOTAL CELLS COUNTED % (AUTO) 100 %; WHITE BLOOD COUNT 11.9 10^3/uL (4.0-10.5)
[2020-05-16 23:30] LABS: INTERNATIONAL RATION (INR) 0.93; PROTHROMBIN TIME 12.7 SEC (11.4-15.4)
[2020-05-16 23:31] LABS: PARTIAL THROMBOPLASTIN TIME 29.4 SEC (23.5-35.8)
[2020-05-16 23:32] LABS: APPEARANCE,URINE SLIGHTLY-CLOUDY; BILIRUBIN,URINE NEGATIVE (NEGATIVE); COLOR,URINE YELLOW; GLUCOSE, URINE NEGATIVE (NEGATIVE); KETONES,URINE NEGATIVE (NEGATIVE); PROTEIN,URINE NEGATIVE (NEGATIVE); URINE SPECIFIC GRAVITY 1.015; UROBILINOGEN,URINE NEGATIVE mg/dL (<2.0)
[2020-05-16 23:50] LABS: ALBUMIN 4.5 g/dL (3.5-5.0); ALKALINE PHOSPHATASE 34 U/L (38-126); ANION GAP 10 (5-19); ASPARTATE AMINO TRANSFERASE 30 U/L (14-36); BILIRUBIN,DIRECT 0.3 mg/dL (0.0-0.4); BILIRUBIN,TOTAL 0.3 mg/dL (0.2-1.3); BLOOD UREA NITROGEN 10 mg/dL (7-20); CARBON DIOXIDE 24 mmol/L (22-30); CHLORIDE 102 mmol/L (98-107); GLUCOSE 92 mg/dL (75-110); POTASSIUM 4.6 mmol/L (3.6-5.0); TOTAL PROTEIN 7.6 g/dL (6.3-8.2)
--- NOTE | 2020-05-17 00:24 | ER Document Report ---
ED GI/ - General Chief Complaint: Abdominal Pain Stated Complaint: ABDOMINAL PAIN Time Seen by Provider: 05/16/20 21:54 Primary Care Provider: ARIS AGUILAR PA-C [Primary Care Provider] - Follow up as needed Mode of Arrival: Ambulatory Information source: Patient Notes: 05/16/20 22:02 - ED Nursing Note by JESSICA CALI Num: [id number] : 1975 Patient Age: 45 is scheduled for umbilical hernia surg in am. pt has pain in rt breast, rt side of abd. last real bm has been weeks poss one mnth. pt unable to eat d/t then increased pain in abd. no vomiting. ED Medical Screen ([facility] notes)) - General Chief Complaint: Abdominal Pain Stated Complaint: ABDOMINAL PAIN Time Seen by Provider: 05/16/20 21:54 Primary Care Provider: ARIS AGUILAR PA-C [Primary Care Provider] - Follow up as needed TRAVEL OUTSIDE OF THE [place] IN LAST 30 DAYS: No - HPI Notes: 05/16/20 22:03 45-year-old female to the emergency department with complaints of right-sided abdominal pain that has gotten significantly worse in the past 4 days. She admits to nausea and vomiting. She states that she has a known ventral hernia that supposed to be repaired by Dr. Faith out of [place] in the next week or so. She states that her pain is just been getting worse and worse. She is had difficulty with bowel movements. She states she took 2 laxatives and only had watery bowel movement. She denies any fevers or chills. She does admit to hot flashes. She states that every time she eats she has significantly worsening pain. She does not have a gallbladder. She also reports right sided breast pain. She states that she has had a graft to this breast before. It is been infected multiple times. I performed a brief medical screening exam on the patient determined that the patient needs further evaluation and management by main side provider. I have placed initial orders to help expedite care. MY NOTES 45-year-old female arrived by POV with chief complaint of several weeks of right lateral breast pain right lateral chest pain with pain to her right upper quadrant right lower quadrant abdomen and right-sided sciatica. She is scheduled in the morning for hernia repair by Dr. Faith. Patient reports she had right breast reduction in 2013 with multiple infections to the same. She reports she has had a skin graft to the same because of complications from the breast reduction. Patient was seen here with Dr. Coley because of the breast infection as well. Patient also reports she has had constipation problems for the last several days. Patient has been seen here in the early months of this year because of abdominal pain. TRAVEL OUTSIDE OF THE [place] IN LAST 30 DAYS: No - HPI Patient complains to provider of: Abdominal pain, Flank pain Onset: Last week Timing/Duration: Sudden, Persistent, Worse Quality of pain: Achy Severity at maximum: Moderate Severity in ED: Moderate Pain Level: 3 Location: Right flank, Low back - Related Data Allergies/Adverse Reactions: Penicillins Allergy (Intermediate, Verified 12/14/19 15:08) Oral swelling, Hives shellfish derived Allergy (Intermediate, Verified 12/14/19 15:08) Hives amoxicillin Allergy (Verified 12/14/19 15:08) Oral swelling, Hives Sulfa (Sulfonamide Antibiotics) Allergy (Verified 12/14/19 15:08) Oral swelling, Hives Iodinated Contrast Media Adverse Reaction (Intermediate, Verified 12/14/19 15:08) Hives morphine Adverse Reaction (Mild, Verified 12/14/19 15:08) VOMITING Home Medications: femerine, ativan, ambien Past Medical History - General Information source: Patient - Social History Smoking Status: Current Every Day Smoker Cigarette use (# per day): Yes Chew tobacco use (# tins/day): No Smoking Education Provided: Yes Drug Abuse: None Lives with: Family Family History: Reviewed & Not Pertinent Patient has suicidal ideation: No Patient has homicidal ideation: No - Past Medical History Cardiac Medical History: Reports: Hx Hypertension - hx of, none at this time , no meds Denies: Hx Coronary Artery Disease, Hx Heart Attack Pulmonary Medical History: Denies: Hx Asthma, Hx Bronchitis, Hx COPD, Hx Pneumonia Neurological Medical History: Denies: Hx Cerebrovascular Accident, Hx Seizures Renal/ Medical History: Denies: Hx Peritoneal Dialysis Musculoskeletal Medical History: Reports Hx Arthritis - Back Past Surgical History: Reports: Hx Breast Surgery - Skin graft after frequent infections, status post breast reduction, Hx Cholecystectomy, Hx Gynecologic Surgery - tubal ligation and ablation - Immunizations Immunizations up to date: Yes Hx Diphtheria, Pertussis, Tetanus Vaccination: No Review of Systems - Review of Systems Constitutional: No symptoms reported, See HPI, Weakness EENT: No symptoms reported Cardiovascular: See HPI, Chest pain - Right sided breast and chest pain laterally. Tender to palpation. Respiratory: No symptoms reported Gastrointestinal: See HPI, Abdominal pain - Right flank pain and right abdominal pain with right-sided sciatica pain. Genitourinary: No symptoms reported Female Genitourinary: No symptoms reported Musculoskeletal: See HPI, Back pain Skin: No symptoms reported Hematologic/Lymphatic: No symptoms reported Neurological/Psychological: No symptoms reported Physical Exam - Vital signs Vitals: Temp Pulse Resp BP Pulse Ox 98.2 F 90 20 156/95 H 97 05/16/20 21:37 05/16/20 21:37 05/16/20 21:37 05/16/20 21:37 05/16/20 21:37 Interpretation: Normal - General General appearance: Appears well, Alert - HEENT Head: Normocephalic, Atraumatic Eyes: Normal Pupils: PERRL - Respiratory Respiratory status: No respiratory distress Chest status: Tender - Breast examined with nursing staff Paul Cueva around 00 30 while IV was being placed by him. Right breast status post reduction with scar tissue along lower poles of breast and extended to right axillary area tender to palpation. Breath sounds: Normal Chest palpation: Normal - Cardiovascular Rhythm: Regular Heart sounds: Normal auscultation Murmur: No - Abdominal Inspection: Normal, Obese Distension: No distension Bowel sounds: Normal Tenderness: Tender - right upper quad pain on p/p Organomegaly: No organomegaly - Rectal Hemorrhoids: Other - deferred - Genitourinary Bimanuel exam: Other - deferred - Back Back: Normal, Nontender - Extremities General upper extremity: Normal inspection, Nontender, Normal color, Normal ROM, Normal temperature General lower extremity: Normal inspection, Nontender, Normal color, Normal ROM, Normal temperature, Normal weight bearing. No: Maico's sign - Neurological Neuro grossly intact: Yes Cognition: Normal Orientation: AAOx4 Ross Coma Scale Eye Opening: Spontaneous [place] Coma Scale Verbal: Oriented [place] Coma Scale Motor: Obeys Commands [place] Coma Scale Total: 15 Speech: Normal Motor strength normal: LUE, RUE, LLE, RLE Sensory: Normal - Psychological Associated symptoms: Normal affect, Normal mood - Skin Skin Temperature: Warm Skin Moisture: Dry Skin Color: Normal Course - Vital Signs Vital signs: Temp Pulse Resp BP Pulse Ox 97.7 F 71 17 133/68 H 98 05/17/20 01:37 05/17/20 01:37 05/17/20 00:06 05/17/20 01:37 05/17/20 01:37 - Laboratory Result Diagrams: 05/16/20 22:50 05/16/20 22:50 Laboratory results interpreted by me: 05/16/20 05/16/20 05/16/20 22:50 22:50 22:50 WBC 11.9 H Sodium 136.3 L ALT 39 H Alkaline Phosphatase 34 L Urine Blood SMALL H - Diagnostic Test Radiology reviewed: Reports reviewed - neg ct abd chest except ventral hernia fat fibroid s/p breast surgery Critical Care Note - Critical Care Note Comments: I discussed patient's findings of CT with her and she appeared to understand the negative results except for the ventral hernia. Discharge - Discharge Clinical Impression: Breast pain, right, Acute right flank pain, Sciatica of right side Condition: Stable Disposition: HOME, SELF-CARE Additional Instructions: Surgeon follow-up this morning; return to ER as needed for increased or wo rsening symptoms; take medicines as directed ; encourage fluids Referrals: ARIS AGUILAR PA-C [Primary Care Provider] - Follow up as needed
[2020-05-17] MEDS ORDERED: DEXAMETHASONE SOD PHOS INJ 10 MG/1 ML VIAL IV ONE (01:38)
[2020-05-17] MEDS ORDERED: DIPHENHYDRAMINE HCL 50 MG/ML VIAL IV ONE (01:38)
[2020-05-17] MEDS ORDERED: KETOROLAC TROMETHAMINE INJ/PF 30 MG/1 ML SDV IV ONE (01:39)
[2020-05-17] MEDS ORDERED: ONDANSETRON HCL INJ/PF 4 MG/2 ML SDV IV ONE (01:53)
[2020-05-17] MEDS ORDERED: OXYCODONE-ACETAMINOPHEN 5-325 MG TABLET PO ONE (02:17)
--- NOTE | 2020-05-17 02:53 | RADIOLOGY REPORT (SQ) ---
EXAM DESCRIPTION: CT abdomen and pelvis with contrast CLINICAL HISTORY: 45 years Female, RUQ abd pain, epigastric pain, difficulty with BM COMPARISON: None. TECHNIQUE: Axial images of the abdomen and pelvis were performed utilizing intravenous contrast, with sagittal and coronal reformatted images. This exam was performed according to our departmental dose-optimization program which includes use of Automated Exposure Control, adjustment of the mA and/or kV according to patient size and/or use of iterative reconstruction technique. FINDINGS: There is a small ventral hernia containing only fat. There is a probable 4.7 cm fundal uterine fibroid. There is a 1.5 cm left ovarian corpus luteum cyst. No follow-up imaging is recommended. Reference: J Am Pato Radiol 2013;10:675-681 The appendix appears normal. No evidence of bowel obstruction. The patient has had a cholecystectomy. There is no significant radiographic abnormality of the liver, spleen, pancreas, adrenal glands or kidneys. No free air or free fluid. IMPRESSION: No acute finding. Other findings as described.
--- NOTE | 2020-05-17 02:59 | RADIOLOGY REPORT (SQ) ---
CLINICAL INDICATION: r sided cp s/p breast reduction/infection. . TECHNIQUE: Contrast-enhanced spiral axial CT imaging was obtained of the chest with multiplanar reconstructions. This exam was performed according to our departmental dose-optimization program, which includes automated exposure control, adjustment of the mA and/or kV according to patient size and/or use of iterative reconstruction techniques. COMPARISON: None. CORRELATION: None. FINDINGS: The heart is of normal size. No pericardial effusion. No bulky mediastinal adenopathy. Postsurgical change of both breasts. No postsurgical complications are identified The lungs are grossly clear. No consolidation or edema. No effusion or pneumothorax. Small fat-containing hernia at the level the umbilicus. Visualized abdominal contents are unremarkable. Visualized bones demonstrate osteoporosis. Transitional vertebrae lumbosacral junction. IMPRESSION: No acute intrathoracic process. No postoperative complications.
[2020-05-17] MEDS ORDERED: HYDROCODONE/ACETAMINOPHEN 5-325 MG (6 TAB/ER DISP) PO PRN (03:02)
[2020-05-17] MEDS ORDERED: LACTULOSE SYRUP 20 GM/30 ML UDCUP PO ONE (03:27)
[2020-05-17 03:56] VITALS: BP 146/86
--- NOTE | 2020-05-17 16:23 | EKG REPORT ---
SEVERITY:- OTHERWISE NORMAL ECG - SINUS RHYTHM BORDERLINE LEFT AXIS DEVIATION : Confirmed by: Toni Iyer MD 17-May-2020 16:23:04
== END 2020-05-17 03:56 | disposition home or self-care (01) ==
LOC: ER 21:18
DX: M54.30 Sciatica, unspecified side (principal); N64.4 Mastodynia; R10.31 Right lower quadrant pain; R10.11 Right upper quadrant pain; F17.210 Nicotine dependence, cigarettes, uncomplicated; I10 Essential (primary) hypertension; Z88.0 Allergy status to penicillin; Z88.2 Allergy status to sulfonamides; Z88.8 Allergy status to other drugs, medicaments and biological substances
CPT/HCPCS: 93005; 99285; 96361; 96374; 96375; 36415; 83690; 85025; 85610; 85730; 80053; 81001; 84484; 71045; 71260; 74177; 93010; J1200; J1885; J2405; J7030; J1100

== ENCOUNTER 2020-07-18 11:37 | Emergency (ER) | payer SELFPAY ==
[2020-07-18] MEDS ORDERED: KETOROLAC TROMETHAMINE INJ/PF 30 MG/1 ML SDV IV ONE (12:01)
[2020-07-18] MEDS ORDERED: NORMAL SALINE 1000 ML 1,000 ML IV ONE (12:01)
--- NOTE | 2020-07-18 12:05 | ER Document Report ---
ED Medical Screen (RME) - General Chief Complaint: Abdominal Pain Stated Complaint: ABDOMINAL PAIN Time Seen by Provider: 07/18/20 11:51 Primary Care Provider: ARIS AGUILAR PA-C [Primary Care Provider] - Follow up as needed TRAVEL OUTSIDE OF THE [place] IN LAST 30 DAYS: No - HPI Notes: 07/18/20 12:01 45-year-old female presents to the emergency room today for evaluation of chron ic, subtle, right upper quadrant abdominal pain that became severe with the right upper and right lower quadrant abdominal pain for the last 2 days, progressively worse. Patient reports right breast pain and swelling over the last couple of days, denies any nipple discharge. Reports she did have a breast augmentation done 2 years ago. Reports pain is 5 out of 5. Reports she tried Tylenol and ibuprofen this morning without relief. Denies any nausea or vomiting. Patient did have an endometrial ablation done 2 years ago she has not had any menstrual cycles. Patient states she has been seen for this issue in the past and they were concerned about her liver, never about gallbladder, she is concerned about her appendix as well. Denies any fevers or chills. Reports that she gave herself an enema a couple of days ago, she then passed a little bit of stool, states that she is not really passing any flatus. Patient reports she still has her gallbladder as well as her appendix I have greeted and performed a rapid initial assessment of this patient. A comprehensive ED assessment and evaluation of the patient, analysis of test results and completion of the medical decision making process will be conducted by additional ED providers. PHYSICAL EXAMINATION: GENERAL: Well-appearing, well-nourished and in mild distress HEAD: Atraumatic, normocephalic. NECK: Normal range of motion CV: s1, s2 regular LUNGS: No respiratory distress abd: RUQ/RLQ abd pain on palpation, abd distention. no cva tenderness bilaterally The patient was evaluated during a global COVID-19 pandemic and that diagnosis was suspected/considered upon their initial presentation. Their evaluation, treatment and testing was consistent with current guidelines for patients who present with complaints or symptoms and may be related to COVID-19. 07/18/20 12:04 - Related Data Allergies/Adverse Reactions: Penicillins Allergy (Intermediate, Verified 12/14/19 15:08) Oral swelling, Hives shellfish derived Allergy (Intermediate, Verified 12/14/19 15:08) Hives amoxicillin Allergy (Verified 12/14/19 15:08) Oral swelling, Hives Sulfa (Sulfonamide Antibiotics) Allergy (Verified 12/14/19 15:08) Oral swelling, Hives Iodinated Contrast Media Adverse Reaction (Intermediate, Verified 12/14/19 15:08) Hives morphine Adverse Reaction (Mild, Verified 12/14/19 15:08) VOMITING Past Medical History - Past Medical History Cardiac Medical History: Reports: Hx Hypertension - hx of, none at this time , no meds Denies: Hx Coronary Artery Disease, Hx Heart Attack Pulmonary Medical History: Denies: Hx Asthma, Hx Bronchitis, Hx COPD, Hx Pneumonia Neurological Medical History: Denies: Hx Cerebrovascular Accident, Hx Seizures Renal/ Medical History: Denies: Hx Peritoneal Dialysis Musculoskeltal Medical History: Reports Hx Arthritis - Back Past Surgical History: Reports: Hx Breast Surgery - Skin graft after frequent infections, status post breast reduction, Hx Cholecystectomy, Hx Gynecologic Surgery - tubal ligation and ablation - Immunizations Immunizations up to date: Yes Hx Diphtheria, Pertussis, Tetanus Vaccination: No Physical Exam - Vital signs Vitals: Temp Pulse Resp BP Pulse Ox 98.2 F 105 H 16 172/101 H 100 07/17/20 11:40 07/17/20 11:40 07/17/20 11:40 07/17/20 11:40 07/17/20 11:40 Course - Vital Signs Vital signs: Temp Pulse Resp BP Pulse Ox 98.2 F 105 H 16 172/101 H 100 07/17/20 11:40 07/17/20 11:40 07/17/20 11:40 07/17/20 11:40 07/17/20 11:40 Doctor's Discharge - Discharge Referrals: ARIS AGUILAR PA-C [Primary Care Provider] - Follow up as needed
[2020-07-18 13:11] LABS: APPEARANCE,URINE SLIGHTLY-CLOUDY; BILIRUBIN,URINE NEGATIVE (NEGATIVE); COLOR,URINE YELLOW; GLUCOSE, URINE NEGATIVE (NEGATIVE); KETONES,URINE NEGATIVE (NEGATIVE); LEUKOCYTE ESTERASE,URINE NEGATIVE (NEGATIVE); NITRITE,URINE NEGATIVE (NEGATIVE); PROTEIN,URINE 30 mg/dL (NEGATIVE); URINE SPECIFIC GRAVITY 1.029
[2020-07-18 13:12] LABS: ABSOLUTE EOSINOPHILS # (AUTO) 0.3 10^3/uL (0.0-0.6); ABSOLUTE LYMPHOCYTES (AUTO) 2.7 10^3/uL (0.5-4.7); ABSOLUTE MONOCYTES (AUTO) 0.8 10^3/uL (0.1-1.4); ABSOLUTE NEUT (AUTO) 5.4 10^3/uL (1.7-8.2); BASOPHILS % (AUTO) 0.5 % (0-2); EOSINOPHILS % (AUTO) 2.9 % (0-6); HEMATOCRIT 39.5 % (36.0-47.0); HEMOGLOBIN 13.4 g/dL (12.0-15.5); MEAN CORPUSCULAR VOLUME 88 fl (80-97); PLATELET COUNT 329 10^3/uL (150-450); RED BLOOD COUNT 4.47 10^6/uL (3.72-5.28); RED CELL DISTRIBUTION WIDTH 13.1 % (11.5-14.0); SEGMENTED NEUTROPHILS % (AUTO) 58.6 % (42-78); TOTAL CELLS COUNTED % (AUTO) 100 %; WHITE BLOOD COUNT 9.2 10^3/uL (4.0-10.5)
--- NOTE | 2020-07-18 13:15 | RADIOLOGY REPORT (SQ) ---
EXAM DESCRIPTION: U/S BREAST UNILATERAL LIMITED IMAGES COMPLETED DATE/TIME: 07/18/2020 12:36 pm REASON FOR STUDY: right breast pain x 2 days ago, no nipple discharg COMPARISON: CT chest dated 05/17/2020. TECHNIQUE: Static and Realtime grayscale interrogation of the right breast and right axilla acquired . Selected color doppler/spectral images saved to PACS. LIMITATIONS: None. FINDINGS: Masses:In the 8 o'clock location, 9 cm from the nipple, there is a 1.4 cm cyst, minimal in ternal echoes. Mild distal acoustic shadowing. No vascularity on Doppler imaging. Adjacent is a po ssible lymph node measuring 5 x 8 mm with thickened cortex. In the axilla there is a probable hypoec hoic lymph node with thickened cortex measuring 0.8 x 1.1 cm. Architecture:No alteration of normal morphology. No skin thickening. No edema. Other: None. IMPRESSION: Complex cyst and possible intramammary lymph node as well as possible lymph node in the right axilla with thickened cortex. Nonspecific. Could be reactive inflammatory lymph node. No dr renner abscess visualized. Recommend follow-up ultrasound in 2-3 months to re-evaluate these findin gs. The patient also reportedly has not had previous mammograms and at the time of follow-up ultraso und, bilateral mammography would be appropriate. BIRAD: 3 Probably benign finding. Initial short-interval follow-up suggested.. RECOMMENDATION: RECOMMENDED FOLLOW-UP: Follow-up imaging in 2 to 3 months as discussed above. COMMENT: The [employer] ([employer]) has developed recommendations for screening MRI of the breasts in certain patient populations, to be used in conjunction with mammography. Breast MRI s urveillance may be appropriate for women with more than 20% lifetime risk of developing breast cancer as determined by genetic testing, significant family history of the disease, or history of mantle r adiation for Hodgkins Disease. ACR Practice Guidelines 2008. TECHNICAL DOCUMENTATION: FINDING NUMBER: (1) ASSESSMENT: (1) JOB ID: [id number] 2010 [employer]- All Rights Reserved Reading location - IP/workstation name: [email or web address]
[2020-07-18 13:30] LABS: ALBUMIN 4.1 g/dL (3.5-5.0); ALKALINE PHOSPHATASE 23 U/L (38-126); ANION GAP 8 (5-19); ASPARTATE AMINO TRANSFERASE 30 U/L (14-36); BILIRUBIN,DIRECT 0.3 mg/dL (0.0-0.4); BILIRUBIN,TOTAL 0.5 mg/dL (0.2-1.3); BLOOD UREA NITROGEN 11 mg/dL (7-20); CALCIUM 9.3 mg/dL (8.4-10.2); CARBON DIOXIDE 26 mmol/L (22-30); CHLORIDE 105 mmol/L (98-107); GLUCOSE 87 mg/dL (75-110); POTASSIUM 4.7 mmol/L (3.6-5.0); TOTAL PROTEIN 7.1 g/dL (6.3-8.2)
[2020-07-18] MEDS ORDERED: DIPHENHYDRAMINE HCL 50 MG/ML VIAL IV ONE (13:52)
[2020-07-18] MEDS ORDERED: METHYLPREDNISOLONE INJ 125 MG/2 ML SDV IV ONE (13:55)
--- NOTE | 2020-07-18 15:38 | RADIOLOGY REPORT (SQ) ---
EXAM DESCRIPTION: CT ABD/PELVIS WITH IV ORAL IMAGES COMPLETED DATE/TIME: 07/18/2020 3:17 pm REASON FOR STUDY: RUQ/RLQ abd pain x2d, pain 11/29 COMPARISON: 11/27/2019. TECHNIQUE: CT scan of the abdomen and pelvis performed using helical scanning technique with dynamic intravenous contrast injection. No oral contrast. Images reviewed with lung, soft tissue, and bone windows. Reconstructed coronal and sagittal MPR images reviewed. Delayed images for evaluation of the urinary system also acquired. All images stored on PACS. All CT scanners at this facility use dose modulation, iterative reconstruction, and/or weight based d osing when appropriate to reduce radiation dose to as low as reasonably achievable (ALARA). [facility]: Dose Right [facility]: CareDose [facility]: Dose Right [facility]: Teradose 4D [facility]: eduplanet KK CONTRAST TYPE AND DOSE: contrast/concentration: Isovue 350.00 mmol/ml; Total Contrast Delivered: 100 .0 ml; Total Saline Delivered: 59.6 ml RENAL FUNCTION: BUN 11 creatinine 0.61. RADIATION DOSE: CT Rad equipment meets quality standard of care and radiation dose reduction techniq ues were employed. CTDIvol: 18.6 - 21.0 mGy. DLP: 2091 mGy-cm.. LIMITATIONS: None. FINDINGS: LOWER CHEST: No significant findings. No nodules or infiltrates. LIVER: Normal size. No masses. No dilated ducts. SPLEEN: Normal size. No focal lesions. PANCREAS: No masses. No significant calcifications. No adjacent inflammation or peripancreatic fluid collections. Pancreatic duct not dilated. GALLBLADDER: Surgically absent. ADRENAL GLANDS: No significant masses or asymmetry. RIGHT KIDNEY AND URETER: No solid masses. No significant calcifications. No hydronephrosis or hyd roureter. LEFT KIDNEY AND URETER: No solid masses. No significant calcifications. No hydronephrosis or hydr oureter. AORTA AND VESSELS: No aneurysm. No dissection. Renal arteries, SMA, celiac without stenosis. RETROPERITONEUM: No retroperitoneal adenopathy, hemorrhage or masses. BOWEL AND PERITONEAL CAVITY: No masses or inflammatory changes. No free fluid or peritoneal masses. APPENDIX: Normal. PELVIS: No mass. Somewhat heterogenous appearance of the uterus. No free fluid. Normal bladder. ABDOMINAL WALL: No masses. Midline abdominal hernia above the umbilicus, containing fat. No involve ment of bowel. BONES: No significant or acute findings. OTHER: No other significant finding. IMPRESSION: 1. UPPER ABDOMINAL WALL HERNIA CONTAINING FAT ONLY. NO INVOLVEMENT OF BOWEL. 2. PROBABLE UTERINE FIBROIDS. 3. NO OTHER SIGNIFICANT OR ACUTE FINDING IN THE ABDOMEN OR PELVIS ON CT SCAN WITH IV CONTRAST. TECHNICAL DOCUMENTATION: JOB ID: [id number] Quality ID # [id number]: Final reports with documentation of one or more dose reduction techniques (e.g., Au tomated exposure control, adjustment of the mA and/or kV according to patient size, use of iterative reconstruction technique) 2010 [employer]- All Rights Reserved Reading location - IP/workstation name: [email or web address]
--- NOTE | 2020-07-18 16:21 | ER Document Report ---
ED General - General Chief Complaint: Abdominal Pain Stated Complaint: ABDOMINAL PAIN Time Seen by Provider: 07/18/20 11:51 Primary Care Provider: LUZMARIA RIBEIRO MD [ACTIVE STAFF] - Follow up in 3-5 days ARIS AGUILAR PA-C [Primary Care Provider] - Follow up in 3-5 days TRAVEL OUTSIDE OF THE [place] IN LAST 30 DAYS: No - HPI Notes: Patient is a 45-year-old female who presents with right-sided abdominal pain and breast pain. Her abdominal pain has been present for several months. It feels like stabbing pain. She states that she has pain with eating. She also states that she has decreased stool. She states she has been eating healthy and eating fruits, vegetables, yogurt. She denies any nausea or vomiting. Patient states her last bowel movement was about 2 days ago. No fevers or chills. Patient also mentions she has discomfort to her right breast. She states she had a breast reduction several years ago that was complicated by infection needing skin graft. Patient states that she feels a lump in her right breast. She denies any nipple drainage. Patient does have a history of a cholecystectomy. - Related Data Allergies/Adverse Reactions: Penicillins Allergy (Intermediate, Verified 12/14/19 15:08) Oral swelling, Hives shellfish derived Allergy (Intermediate, Verified 12/14/19 15:08) Hives amoxicillin Allergy (Verified 12/14/19 15:08) Oral swelling, Hives Sulfa (Sulfonamide Antibiotics) Allergy (Verified 12/14/19 15:08) Oral swelling, Hives Iodinated Contrast Media Adverse Reaction (Intermediate, Verified 12/14/19 15:08) Hives morphine Adverse Reaction (Mild, Verified 12/14/19 15:08) VOMITING Past Medical History - General Information source: Patient - Social History Smoking Status: Current Every Day Smoker Chew tobacco use (# tins/day): No Frequency of alcohol use: None Drug Abuse: None Family History: Reviewed & Not Pertinent - Past Medical History Cardiac Medical History: Reports: Hx Hypertension - hx of, none at this time , no meds Denies: Hx Coronary Artery Disease, Hx Heart Attack Pulmonary Medical History: Denies: Hx Asthma, Hx Bronchitis, Hx COPD, Hx Pneumonia Neurological Medical History: Denies: Hx Cerebrovascular Accident, Hx Seizures Renal/ Medical History: Denies: Hx Peritoneal Dialysis Musculoskeletal Medical History: Reports Hx Arthritis - Back Past Surgical History: Reports: Hx Breast Surgery - Skin graft after frequent infections, status post breast reduction, Hx Cholecystectomy, Hx Gynecologic Surgery - tubal ligation and ablation - Immunizations Immunizations up to date: Yes Hx Diphtheria, Pertussis, Tetanus Vaccination: No Review of Systems - Review of Systems Notes: CONSTITUTIONAL: No fever, fatigue or weight loss. SKIN: No rash. HENT: No congestion, ear pain, or sore throat. CARDIOVASCULAR: No chest pain or edema. RESPIRATORY: No cough, shortness of breath, congestion, or wheezing. GASTROINTESTINAL: No nausea, vomiting, bloody stools or diarrhea. Positive for right-sided abdominal pain. Positive for right breast pain. GENITOURINARY: No dysuria. MUSCULOSKELETAL: No joint pain or swelling. LYMPHATIC: No swollen glands. NEUROLOGIC: No seizures. No headache, focal weakness or sensory changes. HEMATOLOGIC: No unusual bruising or bleeding. PSYCHIATRIC: No depression or anxiety. Physical Exam - Vital signs Vitals: Temp Pulse Resp BP Pulse Ox 98.2 F 105 H 16 172/101 H 100 07/17/20 11:40 07/17/20 11:40 07/17/20 11:40 07/17/20 11:40 07/17/20 11:40 - General General appearance: Appears well In distress: None Notes: VITAL SIGNS: Within normal limits. GENERAL: No acute distress, non-toxic appearance. HEAD: Normal with no signs of head trauma. EYES: Conjunctiva normal, no discharge. EARS: Hearing grossly intact. NECK: Normal range of motion, no tenderness, supple, no lymphadenopathy, No adenopathy, no JVD. CHEST: Clear breath sounds bilaterally. CARDIAC: Regular rate and rhythm. S1 and S2, without murmurs, gallops, or rubs. VASCULAR: No Edema. ABDOMEN: Normal and soft. No rigidity or guarding. Discomfort to epigastric palpation. No swelling to right breast. No obvious lymphadenopathy. No drainage from the nipple. No skin changes. GENITOURINARY: Normal, No tenderness MUSCULOSKELETAL: Good range of motion of all major joints. Extremities without clubbing, cyanosis or edema. NEUROLOGICAL: Alert and oriented x 3. No focal sensory or strength deficits. Speech normal. Follows commands appropriately. PSYCHIATRIC: Normal Affect, judgement and mood. SKIN: Normal appearance with no rashes or lesions. Course - Re-evaluation Re-evalutation: 07/18/20 20:31 Patient appears well on exam. She is drinking water in the room. I discussed all results with the patient. I informed her of the abdominal wall hernia containing fat. I recommended she follow-up with surgery for this. I also discussed the findings of the breast ultrasound. I informed her she needs to follow-up with her family doctor for a mammogram and repeat ultrasound. Patient verbalized understanding. I told her to return immediately for any redness or warmth in the area. I also offered to prescribe her Bentyl for abdominal cramping. She is very agreeable to this. She has already had a cholecystectomy. Patient has normal liver function tests. She was told to follow-up with the PCP. Patient was given strict return precautions. Patient is very agreeable to this plan. - Vital Signs Vital signs: Temp Pulse Resp BP Pulse Ox 98.4 F 79 18 152/67 H 98 07/18/20 16:40 07/18/20 16:40 07/18/20 16:40 07/18/20 16:40 07/18/20 16:40 - Laboratory Results Result Diagrams: 07/18/20 12:45 07/18/20 12:45 Laboratory Results Interpreted: 07/18/20 07/18/20 12:45 12:45 Alkaline Phosphatase 23 L Urine Protein 30 H Urine Urobilinogen 2.0 H Critical Laboratory Results Reviewed: No Critical Results - Radiology Results Critical Radiology Results Reviewed: No Critical Results Discharge - Discharge Clinical Impression: Breast pain, right, Abdominal wall hernia Abdominal pain Qualifiers: Abdominal location: upper abdomen, unspecified Qualified Code(s): R10.10 - Upper abdominal pain, unspecified Breast cyst Qualifiers: Laterality: right Qualified Code(s): N60.01 - Solitary cyst of right breast Condition: Stable Disposition: HOME, SELF-CARE Instructions: Abdominal Pain ([facility]) Additional Instructions: Your work-up is reassuring. You have a right breast cyst and reactive lymph node. Please follow-up for repeat ultrasound and mamogram with your family doctor in 2 to 3 months as per radiology. Return to the ER immediately for any warmth or redness to the area or fevers. You have an abdominal wall hernia containing fat. Please follow-up with surgery for this. Take Bentyl for abdominal pain. He can also continue Tylenol and ibuprofen. Please follow-up with your family doctor. Return to the ER immediately for any worsening symptoms. Prescriptions: Dicyclomine HCl [Bentyl 10 mg Capsule] 1 cap PO TID PRN #15 cap PRN Reason: Referrals: ARIS AGUILAR PA-C [Primary Care Provider] - Follow up in 3-5 days LUZMARIA RIBEIRO MD [ACTIVE STAFF] - Follow up in 3-5 days
[2020-07-18 16:41] VITALS: BP 152/67
== END 2020-07-18 16:41 | disposition home or self-care (01) ==
LOC: ER 11:37
DX: K43.9 Ventral hernia without obstruction or gangrene (principal); R10.10 Upper abdominal pain, unspecified; N60.01 Solitary cyst of right breast; N64.4 Mastodynia; F17.200 Nicotine dependence, unspecified, uncomplicated; Z90.49 Acquired absence of other specified parts of digestive tract; Z88.0 Allergy status to penicillin; Z88.2 Allergy status to sulfonamides
CPT/HCPCS: 99285; 96361; 96374; 96375; 36415; 83690; 85025; 81025; 80053; 81001; 76642; 74177; J1200; J2930; J1885; J7030